=== PATIENT | female | born 1950 | race Caucasian/White ===

== ENCOUNTER 2017-01-20 18:06 | Inpatient (IN) | payer OTHER ==
[~2017-01-20] VITALS: Ht 170.2 cm; Wt 73.0 kg
[~2017-01-20 18:06] MED LIST: ROBITUSSIN W/CO10 ML PO
--- NOTE | 2017-01-20 18:15 | NUR ---
PT NOTICED TO HAVE DIFFICULTY BREATHING, O2 SAT AT [place] 83%, NC PLACED ON 2 LITERS FOR COMFORT. PT TACHACARDIC HR IN THE 115'S, PT PALE, ONLY ABLE TO STAND WITH THE ASSIST OF 2.
--- NOTE | 2017-01-20 18:18 | NUR ---
TRIAGE: PT BROUGHT TO ER BY SON WHO STATES SHE WAS DIAGNOSED WITH THE FLU ON SATURDAY AT [facility]. STATES SHE HAS BEEN GETTING WORSE AND WORSE. PT BROUGHT TO [place] FOR EKG FROM [facility]. R/A SATS 83%, PLACED ON NASAL CANULA O2. PT UNABLE TO SPEAK IN COMPLETE SENTENCES, +INCREASED WORK OF BREATHING NOTED.
--- NOTE | 2017-01-20 18:37 | NUR ---
PT TO ER ROOM 11. MD TO BEDSIDE IV EST. BLOOD WORK DRAWN AND SENT TO LAB PT ON 5L NC, SATS 91% AT THIS TIME TEMP 102.2
--- NOTE | 2017-01-20 18:53 | NUR ---
PT MEDICATED WITH TYLENOL AND VANCO PER ORDER. NORMAL SALINE FLUIDS PER ORDER
--- NOTE | 2017-01-20 18:58 | NUR ---
PT TO XRAY VIA STRETCHER AT THIS TIME
[2017-01-20 19:13] LABS: ABSOLUTE BASOPHIL COUNT 0 /CUMM (0.0-0.2); ABSOLUTE EOSINOPHIL COUNT 0 /CUMM (0.0-0.7); ABSOLUTE GRANULOCYTE CT 31.1 /CUMM (1.4-6.5); ABSOLUTE LYMPH COUNT 0.6 /CUMM (1.2-3.4); ABSOLUTE MONOCYTE COUNT 0.3 /CUMM (0.10-0.60); BASOPHIL % 0 % (0.0-2.0); EOSINOPHIL % 0 % (0-5); MEAN CORPUSCULAR HGB 28.2 PG (27.0-31.0); MEAN CORPUSCULAR HGB CONC 33.3 G/DL (33.0-37.0); MEAN CORPUSCULAR VOLUME 84.8 FL (81.0-99.0); MEAN PLATELET VOLUME 8.3 FL (7.4-10.4); PLATELET COUNT 376 /CUMM (130-400); RBC DISTRIBUTION WIDTH 13.2 % (11.5-14.5); RED BLOOD CELL CT 4.36 /CUMM (4.20-5.40)
[2017-01-20 19:17] LABS: GRANULOCYTE % 97.1 % (42.2-75.2)
--- NOTE | 2017-01-20 19:18 | NUR ---
CRITICAL TEST RESULTS [id number] JOSH MCFARLANE 66 F TESTS AND RESULTS: WBC 32.0 Results received and read back by: SATURNINO FALL Results received date and time: 01/20/171917 The following provider was notified of the results, and read the results back: MD ARREAGA Notified date and time: 01/20/17 at 1918
--- NOTE | 2017-01-20 19:26 | NUR ---
CRITICAL TEST RESULTS [id number] JOSH MCFARLANE 66 F TESTS AND RESULTS: LACTIC 2.7 Results received and read back by: SATURNINO FALL Results received date and time: 01/20/171925 The following provider was notified of the results, and read the results back: MD ARREAGA Notified date and time: 01/20/17 at 1926
--- NOTE | 2017-01-20 19:33 | NUR ---
PT C/O INCREASED SOB. INCREASED WOB NOTED. PT PUT ON NRB 100% O2 AND EVALUATED BY MD ARREAGA. RESP AT BEDSIDE GETTING ABG
--- NOTE | 2017-01-20 19:47 | RADIOLOGY REPORT ---
EXAMINATION: XR CHEST CLINICAL INFORMATION: Cough, hypoxia, pneumonia COMPARISON: 02/23/2014 TECHNIQUE: 2 views of the chest were obtained. FINDINGS: New from the prior study, there is left base consolidation and hazy left midlung and left base opacity, greatest posteriorly on the lateral view. The left costophrenic angle is not fully obscured. There may be a small left pleural effusion. Right lung and pleural spaces are clear. No pulmonary edema. Normal heart size. Regional skeleton intact. IMPRESSION: Left base consolidation consistent with pneumonia. Small left pleural effusion may be present as well. These findings are new since the prior study January 2014.
--- NOTE | 2017-01-20 20:19 | NUR ---
PT BACK FROM CT
[2017-01-20] MEDS ORDERED: BYSTOLIC20 M1 PO (20:21)
[2017-01-20] MEDS ORDERED: ONDANSETRON HCL4 MG (20:22)
[2017-01-20] MEDS ORDERED: SPIRIVA18 MCG INH (20:22)
[2017-01-20] MEDS ORDERED: BREO ELLIPTA 11 EACH INH (20:22)
[2017-01-20] MEDS ORDERED: VITAMIN C500 M6 PO (20:23)
[2017-01-20] MEDS ORDERED: MULTI-DAY VITA1 EACH PO (20:23)
--- NOTE | 2017-01-20 20:45 | ED INFLUENZA/URI COMPLAINT ---
History of Present Illness General Chief Complaint: Upper Respiratory Sx/Fever Stated Complaint: FLU, +NVD, FEVER, COUGH Source: patient Exam Limitations: no limitations Vital Signs & Intake/Output Vital Signs & Intake/Output Vital Signs Date Time Temp Pulse Resp B/P B/P Pulse O2 O2 Flow FiO2 Mean Ox Delivery Rate 01/21 0000 98.3 92 20 104/60 96 Venti Mask 50% 01/21 0000 96 Venti Mask 50% 01/20 2221 98.9 83 24 121/57 98 Non 60% ReBreather 01/20 2130 98.6 80 24 115/69 98 Non 60% ReBreather 01/20 2118 98.1 01/20 2025 98.1 89 24 107/53 98 Non 60% ReBreather 01/20 1854 91 Nasal 5.0L Cannula 01/20 1853 102.2 01/20 1819 102.2 114 26 108/71 83 Room Air ED Intake and Output 01/21 0000 01/20 1200 Intake Total 1000 Output Total Balance 1000 Intake, IV 1000 Patient 160 lb Weight Weight Reported by Patient Measurement Method Allergies Coded Allergies: adhesive tape (OPEN SORES - PAPER TAPE IS OKAY 01/20/17) Triage Note: TRIAGE: PT BROUGHT TO ER BY SON WHO STATES SHE WAS DIAGNOSED WITH THE FLU ON SATURDAY AT [facility]. STATES SHE HAS BEEN GETTING WORSE AND WORSE. PT BROUGHT TO [place] FOR EKG FROM [facility]. R/A SATS 83%, PLACED ON NASAL CANULA O2. PT UNABLE TO SPEAK IN COMPLETE SENTENCES, +INCREASED WORK OF BREATHING NOTED. Triage Nurses Notes Reviewed? yes HPI: Ms. Cabrera is a 66 yo f w/ PMH of palpitations on bystolic and pneumonia present into the emergency department for shortness of breath. States she went to her primary care doctor on Saturday where she was diagnosed with influenza. She did not have a nasal swab done at that point in time, the diagnosis was made clinically. Patient states that her shortness of breath continued to worsen over the past 5 days. She continues to have a productive cough of white/yellow sputum. She endorses subjective fevers and chills at home. Unknown how high the temperature has been. Son states her work of breathing has increased significantly over the past 24 hours and she has been able only to talk in one- word answers so he convinced her to come to the emergency department for evaluation. At triage, the patient was hypoxic to 80% on room air. She was noted to be tachycardic to 115 as well as febrile to 102. Patient is a remote smoker. smoked 1ppd for 30 years, but quit 20 years ago. (TEMI ARREAGA MD) Reconcile Medications Ascorbate Calcium (Vitamin C) 500 MG TABLET 1 TAB PO DAILY SUPPLEMENT ( Reported) Multivitamin (Multi-Day Vitamins) 1 EACH TABLET 1 TAB PO DAILY SUPPLEMENT ( Reported) Nebivolol HCl (Bystolic) 20 MG TABLET 1 TAB PO DAILY HEART (Reported) (JASON SINGH,SINCERE Amezcua) Past History Travel History Traveled to [place] past 21 day No Medical History Any Pertinent Medical History? 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 No (TEMI ARREAGA MD) Review of Systems Review of Systems Constitutional: Reports: chills, fever, malaise. Comments Review of systems: See HPI, All other systems negative. Constitutional: +fever, +chills, +fatigue. No malaise, no weight loss. HEENT: No visual changes no sore throat no congestion, no ear pain. Cardiovascular: No chest pain, no palpitation , no orthopnea. Skin: no rashes, no change in skin Respiratory: +cough, +inc work of breathing, no hemoptysis GI: No nausea no vomiting, no diarrhea, no bloating/constipation : No dysuria No hematuria, no frequency, no discharge Muscloskeletal: No joint pain, no joint swelling, no back pain, no neck pain Neurologic: No numbness no confusion, no headache Psych: No stress no depression Heme/endocrine: No bruising no bleeding Immunology: No lymphadenopathy (TEMI ARREAGA MD) Physical Exam Physical Exam General Appearance: well developed/nourished, alert, awake, anxious, severe distress Head: atraumatic, normal appearance Eyes: Bilateral: normal appearance, PERRL, EOMI. Ears, Nose, Throat: normal ENT inspection, hearing grossly normal, Dry mucous membranes Neck: normal inspection, supple, full range of motion Respiratory: chest non-tender, accessory muscle use, decreased breath sounds in the left lower lobe with high pitched bronchial noises. Positive crackles in left base Cardiovascular: regular rate/rhythm Gastrointestinal: normal bowel sounds, soft, non-tender Rectal: deferred Back: normal inspection, normal range of motion Extremities: normal inspection, normal capillary refill, normal range of motion Neurologic/Psych: no motor/sensory deficits, awake, alert, oriented x 3, normal mood/affect Skin: intact, normal color, warm/dry Core Measures Severe Sepsis Present: Yes BC x2: Yes Lactic Acid x2: Yes IV ABX Broad Spectrum: Yes NS/LR Started: Yes Septic Shock Present: No (GIBSON SINGH,TEMI) Progress Differential Diagnosis: influenza, pneumonia, pharyngitis, sinusitis, ARDS Plan of Care: Orders Procedure Date/time Status Nothing by Mouth 01/21 B Active US-LIMITED ABDOMEN 01/21 1000 Active PROTHROMBIN TIME 01/21 0500 Active PHOSPHORUS 01/21 0500 Active MAGNESIUM 01/21 0500 Active HEPATIC FUNCTION PANEL 01/21 0500 Active CBC WITHOUT DIFFERENTIAL 01/21 0500 Active BASIC ELECTROLYTES PLUS BUN&CR 01/21 0500 Active Wound Care/Dressing 01/20 2347 Active Weight 01/20 2347 Active VTE Mechanical Prophylaxis 01/20 2347 Active Vital Signs 01/20 2347 Active Turn and Reposition 01/20 2347 Active Drains/Tubes 01/20 2347 Active Teach/Educate 01/20 2347 Active Skin Integrity Protocol 01/20 2347 Active Skin/Pressure Ulcer Assess (Sk 01/20 2347 Active Precautions 01/20 2347 Complete Pain Treatment and Response 01/20 2347 Active Nutritional Intake, Monitor 01/20 2347 Active Isolation 01/20 2347 Complete CIWA 01/20 2347 Active Patient Care Conference 01/20 2347 Active Activity/Ambulation 01/20 2347 Active VRE ACTIVE SURVIELLANCE 01/20 2321 Active ACTIVE SURVEILLANCE NARES 01/20 2321 Active STREP PNEUMO URINARY ANTIGEN 01/20 2247 Active LEGIONELLA URINARY ANTIGEN 01/20 2247 Active Intake & Output 01/20 2230 Active EKG 01/20 2155 Active Code Status 01/20 2151 Active LACTIC ACID 01/20 2137 Complete Pathway - chart 01/20 2119 Active TRC EVALUATION (GEN) 01/20 2117 Active OXYGEN SETUP (GEN) 01/20 2117 Active Pathway - chart 01/20 2117 Active House Staff 01/20 2117 Active RAPID VIRAL INFLUENZA A 01/20 2117 Complete THROAT CULTURE W/QUICK STREP 01/20 2117 Complete LOWER RESPIRATORY CULTURE 01/20 2117 Active Patient Data 01/21 2108 Active Admit to inpatient 01/20 2018 Active ARTERIAL BLOOD GAS (GEN) 01/20 192 Complete HEPATITIS PANEL 01/20 1840 Active DIRECT BILIRUBIN 01/20 184 Active BLOOD CULTURE 01/20 183 Active LACTIC ACID 01/20 183 Active COMPREHENSIVE METABOLIC PANEL 01/20 183 Active CBC WITHOUT DIFFERENTIAL 01/20 1837 Complete EKG 01/20 180 Active Lab Add-on Test 01/20 UNK Active VTE Mechanical Prophylaxis 01/20 UNK Active Vital Signs 01/20 UNK Active MISTAKE 01/20 UNK Complete Isolation 01/20 UNK Complete Current Medications Sig/Nika Start time Last Medication Dose Stop Time Status Admin Multivitamins 1 TAB DAILY 01/21 1000 AC Therapeutic (Theragran-M Vitamins Tabs) Nebivolol 20 MG DAILY 01/21 1000 AC (Bystolic) Vancomycin HCl 1,000 MG Q12H 01/21 0700 AC Sodium Chloride 250 ML (Normal Saline 0.9%) Ceftazidime 1,000 MG IQ8 01/21 0000 CAN (Fortaz) Ceftazidime 1,000 MG Q12 01/20 2200 AC 01/20 (Fortaz) 2201 Guaifenesin 600 MG Q12 01/20 2200 AC 01/20 (Mucinex) 2221 Heparin Sodium 5,000 UNIT Q8 01/20 2200 AC 01/20 (Porcine) 2221 Ondansetron HCl 4 MG Q6P PRN 01/20 2200 AC (Zofran) Acetaminophen 650 MG Q6P PRN 01/20 2130 AC (Tylenol) Acetaminophen 1,000 MG Q6P PRN 01/20 2130 AC (Ofirmev) N/A 1 UNIT (No Carrier) Morphine Sulfate 2 MG Q6P PRN 01/20 2130 AC (Morphine) Sodium Chloride 1,000 ML Q10H 01/20 2130 AC (Normal Saline 0.9%) 01/22 0329 Laboratory Tests 01/20/172214: Lactic Acid 1.1 01/20/171934: pH 7.41, pCO2 34 L, pO2 255 H, HCO3 20 L, ABG O2 Sat (Measured) 98.0, P-50 ( Temp Corrected) Y, Carboxyhemoglobin 0.3 L, O2 Concentration % 100%, Temperature 102.2 H, O2 Delivery Method NRB, Phlebotomy Draw Site RIGHT RADIAL 01/20/171839: Anion Gap 17 H, Estimated GFR 45 L, BUN/Creatinine Ratio 25.0, Glucose 118 H, Lactic Acid 2.7 H, Calcium 8.3 L, Total Bilirubin 2.9 H, Direct Bilirubin 2.2 H, AST 89 H, ALT 83 H, Alkaline Phosphatase 202 H, Total Protein 5.7 L, Albumin 2.9 L, Globulin 2.8, Albumin/Globulin Ratio 1.0 L, CBC w Diff MAN DIFF ORDERED, RBC 4.36, MCV 84.8, MCH 28.2, RDW 13.2, MPV 8.3, Gran % 97.1 H, Lymphocytes % 2.0 L, Monocytes % 0.9 L, Eosinophils % 0, Basophils % 0 L, Absolute Granulocytes 31.1 H, Segmented Neutrophils 67, Band Neutrophils 25 H, Absolute Lymphocytes 0.6 L, Lymphocytes 2 L, Monocytes 1 L, Absolute Monocytes 0.3, Absolute Eosinophils 0, Absolute Basophils 0, Metamyelocytes 4 H , Myelocytes 1 H, Polychromasia 1+, Hypochromic-Microcytic 1+, Anisocytosis 1+, PUBS MCHC 33.3, Hepatitis A IgM Ab Pending, Hep Bs Antigen Pending, Hep B Core IgM Ab Conf Pending, Hepatitis C Antibody Pending Microbiology 01/20 2330 UPPER RESP: Surveillance Culture - RECD 01/20 2321 GI: Surveillance Culture - ORD 01/20 2247 URINE ROUT: Legionella Antigen - ORD 01/20 2247 URINE ROUT: Streptococcus pneumoniae Antigen (M - ORD 01/20 2145 LOWER RESP: Respiratory Culture - RES 01/20 2145 LOWER RESP: Gram Stain - RES 01/20 2145 NASOPHARYN: Influenza Virus A & B Rapid Smear - COMP 01/20 1843 NASOPHARYN: Influenza Virus A & B Rapid Smear - CAN Cancelled: DUPLICATE - SEE [id number] 01/20 1842 BLOOD: Blood Culture - RECD 01/21 1840 BLOOD: Blood Culture - RECD Ms. Cabrera is a 66-year-old female who is ill-appearing and toxic. She is only able to speak in one-word sentences. She is hypoxic to 80% on room air in triage. Recent has increased work of breathing and intercostal retractions bilaterally. Patient was placed on nasal cannula at 6 L and was still satting 89-90%. Concern for significant pneumonia versus ARDS versus pulmonary embolism. Patient was then upgraded from a nasal cannula to nonrebreather 15 L. Significant improvement in oxygenation level and symptomatic improvement as well. Patient's O2 oxygen level was 97% at that point in time. An ABG was obtained at that point in time. Clinically the patient has a left lower lobe pneumonia as she has high-pitched bronchial sounds in that area. The chest x-ray shows a left lower lobe pneumonia. Given the significant hypoxia, plan to obtain CTA PE to assess for possible underlying pulmonary embolism in addition to a pneumonia. CT is negative for a pulmonary embolism however it does better characterize the quality of the pneumonia which is quite extensive. The pneumonia covers the left lower lobe and part of the lingula. Since labs are notable for a leukocytosis of 32 with a significant left shift. The patient also has a lactic acidosis is elevated at 2.7. Patient also has some other electrolyte abnormalities. Patient was given 1 L of normal saline here in the emergency department. After blood cultures were obtained, patient was given broad-spectrum antibiotics with vancomycin and ceftaz. Discussed patient w/ Dr. Pa and he agrees to admission to ICU. (GIBSON SINGH,[facility]) Diagnostic Imaging: Viewed by Me: Radiology Read, CT Scan. Discussed w/RAD: Radiology Read, CT Scan. Radiology Impression: No pulmonary embolus seen. Extensive left lung consolidation with near complete involvement of the left lower lobe as well as involvement of the left upper lobe particularly in the lingula. There are air bronchograms but the central airways are patent. Small amount of left pleural fluid is present, likely loculated with loculations posteriorly at the left lung apex as well as laterally and anteriorly at the left lung base. Also seen is mediastinal lymphadenopathy most notable for enlarged AP window and subcarinal lymph nodes. Overall, the appearance is most consistent with extensive pneumonia , reactive lymphadenopathy, and a parapneumonic effusion. Alternatively, a malignancy could be considered, although no central obstructing mass is seen. Recommend pulmonary consultation to consider bronchoscopy and guide further management. CXR Impression: Left base consolidation consistent with pneumonia. Small left pleural effusion may be present as well. These findings are new since the prior study January 2014. Initial ED EKG: normal axis, normal intervals, normal p-waves, normal QRS complex, sinus tachycardia Prior EKG: changed (TEMI ARREAGA MD) Departure Departure Time of Disposition: 2057 Disposition: STILL A PATIENT Condition: Stable Clinical Impression Primary Impression: Pneumonia Qualifiers: Pneumonia type: due to unspecified organism Laterality: left Lung location: lower lobe of lung Qualified Code: J18.1 - Lobar pneumonia, unspecified organism Secondary Impressions: Fever Qualifiers: Fever type: unspecified Qualified Code: R50.9 - Fever, unspecified Hypoxia Referrals: MINESH ALVA MD (PCP/Family) Departure Forms: Customer Survey General Discharge Information Admission Note Spoke With: LEE PA MD Documentation of Exam: Documentation of any treatments & extenuating circumstances including Concerns Regarding Discharge (functional status, medication knowledge or non-compliance, living conditions, etc.) that warrant an admission rather than observation: Patient requires inpatient hospitalization as well as ICU level of care given the required amount of oxygen to maintain normal oxygenation. The patient is currently on 15 L via nonrebreather. The patient also has extensive pneumonia requiring IV antibiotics. She is critically ill at this point in time and requires ICU level of care. (TEMI ARREAGA MD) Resident Co-Sign Statement Statement: ED Attending supervision documentation- [] I saw and evaluated the patient. I have also reviewed all the pertinent lab results and diagnostic results. I agree with the findings and the plan of care as documented in the Resident's documentation. x] I have reviewed the ED Record and agree with the Resident's documentation. [] Additions or exceptions (if any) to the Resident's note and plan are summarized below: [] (JASON SINGH,SINCERE Amezcua) Critical Care Note Critical Care Note Critical Care Time: 30-74 min Comments: Total critical care time: 35 min (TEMI ARREAGA MD)
--- NOTE | 2017-01-20 20:51 | NUR ---
PT REPORTS SOB IMPROVING. IMPROVED WOB. PT 99% ON NRB 69% O2. PT A/O X4. RESP UNLABORED. SKIN WARM AND DRY. PT DENIES PAIN. NSR ON THE MONITOR. NO APPARENT DISTRESS. WILL CONTINUE TO MONITOR.
--- NOTE | 2017-01-20 20:52 | CT SCAN REPORT ---
EXAMINATION: CT ANGIOGRAM OF THE CHEST WITH AND WITHOUT CONTRAST (CT PULMONARY ANGIOGRAM FOR PE) CLINICAL INFORMATION: Shortness of breath. Hypoxia to 80 percent COMPARISON: Chest x-ray earlier today and 02/23/2014 TECHNIQUE: Prior to contrast administration, noncontrast localization images were obtained. Subsequently, multidetector volumetric imaging was performed from the thoracic inlet to below the diaphragms following the administration of 100 mL Optiray 320 intravenous contrast. No contrast reaction reported. Sagittal, coronal, and MIP oblique sagittal reformatted images were obtained on the CT workstation, uploaded to PACS, and reviewed. Total exam dose-length product 407 mGy-cm. FINDINGS: QUALITY OF STUDY/CONTRAST BOLUS: Satisfactory PULMONARY ARTERIES: No central or segmental pulmonary emboli. THORACIC AORTA: No aneurysm or dissection. LUNG: As seen on the chest radiograph, there is extensive left lung consolidation predominantly involving the left lower lobe but involving the left upper lobe as well, particularly in the lingula. Multiple air bronchograms are present. The major airways are intact. No debris is seen within the airways. There is moderate emphysema in the right lung and residual aerated left lung. PLEURA: Small amount of left pleural fluid is present, likely loculated with a loculated collection posteriorly at the lung apex as well as loculated fluid seen anteriorly and laterally in the left pleural space at the base. MEDIASTINUM: Multifocal mediastinal lymphadenopathy is seen with precarinal, prevascular, subcarinal, AP window, and bilateral hilar lymph nodes. The largest is a subcarinal lymph node measuring 1.1 x 2 cm. There is a 2.2 x 1.3 cm AP window lymph node. The pulmonary artery measures 3 cm suggesting pulmonary arterial hypertension. Normal heart size. Trace pericardial fluid. CHEST WALL/AXILLA: No axillary or internal mammary lymphadenopathy. OSSEOUS STRUCTURES: Multilevel degenerative changes of the thoracic spine with no acute or suspicious osseous abnormality. UPPER ABDOMEN: No adrenal mass. No reflux of contrast into the hepatic veins to suggest elevated right heart pressures. IMPRESSION: No pulmonary embolus seen. Extensive left lung consolidation with near complete involvement of the left lower lobe as well as involvement of the left upper lobe particularly in the lingula. There are air bronchograms but the central airways are patent. Small amount of left pleural fluid is present, likely loculated with loculations posteriorly at the left lung apex as well as laterally and anteriorly at the left lung base. Also seen is mediastinal lymphadenopathy most notable for enlarged AP window and subcarinal lymph nodes. Overall, the appearance is most consistent with extensive pneumonia, reactive lymphadenopathy, and a parapneumonic effusion. Alternatively, a malignancy could be considered, although no central obstructing mass is seen. Recommend pulmonary consultation to consider bronchoscopy and guide further management.
--- NOTE | 2017-01-20 21:08 | History & Physical ---
See Addendum General Information and HPI MD Statement: I have seen and personally examined JOSH MCFARLANE and documented this H&P. The patient is a 66 year old F who presented with a patient stated chief complaint of [shortness of breath]. Source of Information: patient, family Exam Limitations: no limitations History of Present Illness: 66-year-old female with a past medical history of possible COPD, supraventricular tachycardia, former smoker who presented to the ED with chief complaint of shortness of breath, generalized malaise and purulent productive cough going on for the past week and a half. According to the patient she was in her usual state of health up until about a week and half ago when she had flulike symptoms, productive cough bringing up brown marilyn colored phlegm and feeling of increased lethargy. Dorsal fever and chills that progressively got worse to point where the highest recorded temperature was 102F. 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 She saw her primary care physician at [facility] on Saturday of 01/14/2017 and was told that she has the flu and was advised symptomatic treatment as well as inhalers which include Breo. Her symptoms continued to worsen to the point where she was getting exertional a short of breath while getting out of bed. That's the reason why she decided to come to the ER today. Patient does endorse having episodes of nonbloody vomiting as well as nausea that started this past Saturday for which she took Zofran as well as diarrhea that was nonbloody, watery loose stools about 4-5 episodes on a daily basis not accompanied with abdominal pain. Her symptoms were relieved by taking Motrin Imodium. There is no recent history of antibiotic use. He also endorses some chest discomfort when taking a deep breath and points to with her left breast seen that it feels as if her chest and squeezing. There is no history of PND, no orthopnea, lower extremity swelling, palpitations , urinary frequency or burning micturition. Allergies/Medications Allergies: Coded Allergies: adhesive tape (OPEN SORES - PAPER TAPE IS OKAY 01/20/17) Home Med list Ascorbate Calcium (Vitamin C) 500 MG TABLET 1 TAB PO DAILY SUPPLEMENT ( Reported) Multivitamin (Multi-Day Vitamins) 1 EACH TABLET 1 TAB PO DAILY SUPPLEMENT ( Reported) Nebivolol HCl (Bystolic) 20 MG TABLET 1 TAB PO DAILY HEART (Reported) Compliance With Home Meds: GOOD Past History Travel History Traveled to [place] past 21 day No Medical History Neurological: NONE EENT: NONE Cardiovascular: TACHYCARDIA Respiratory: pneumonia Gastrointestinal: NONE Hepatic: NONE Renal: NONE Musculoskeletal: NONE Psychiatric: NONE Endocrine: NONE Blood Disorders: NONE Cancer(s): NONE [employer] AND [employer]ACH/Reproductive: NONE Pneumonia Vaccine: 02/22/07 Surgical History Surgical History: none Past Family/Social History Psychosocial History ETOH Use: denies use Illicit Drug Use: denies illicit drug use Review of Systems Review of Systems Constitutional: Reports: chills, fever, malaise, weakness. Denies: diaphoresis. EENTM: Denies: visual changes. Cardiovascular: Reports: chest pain. Denies: edema, orthopena, palpitations, peripheral edema. Respiratory: Reports: cough, hemoptysis, orthopnea, short of breath, sputum production. Denies: stridor, wheezing. GI: Reports: diarrhea, nausea, vomiting. Denies: abdominal pain, constipation, bloody stool. Genitourinary: Denies: discharge, frequency, pain, urgency. Musculoskeletal: Reports: see HPI. Neurological/Psychological: Reports: weakness. Denies: headache, numbness, tingling, tremors, unable to move lower ext, unable to move upper ext. Hematologic/Endocrine: Denies: bruising, bleeding. Exam & Diagnostic Data Last 24 Hrs of Vital Signs/I&O Vital Signs Date Time Temp Pulse Resp B/P B/P Pulse O2 O2 Flow FiO2 Mean Ox Delivery Rate 01/20 2221 98.9 83 24 121/57 98 Non 60% ReBreather 01/20 2130 98.6 80 24 115/69 98 Non 60% ReBreather 01/20 2118 98.1 01/20 2025 98.1 89 24 107/53 98 Non 60% ReBreather 01/20 1854 91 Nasal 5.0L Cannula 01/20 1853 102.2 01/20 1819 102.2 114 26 108/71 83 Room Air Physical Exam General Appearance Alert, Oriented X3, Cooperative, No Acute Distress Skin No Rashes Skin Temp/Moisture Exam: Warm/Dry Sepsis Skin Exam (color): Normal for Ethnicity HEENT Atraumatic, PERRLA, EOMI, dry mucous membranes, icteric Neck Supple, No JVD, No thryomegaly, +2 Carotid Pulse wo Bruit, No LAD Cardiovascular Regular Rate, Normal S1, Normal S2, No Murmurs, chest nontender to palpation Lungs decrased breath sound sin left lower lobe Abdomen Normal Bowel Sounds, Soft, No Tenderness, guerrero's negative, no rebound tenderness Neurological Normal Speech, Strength at 5/5 X4 Ext, Normal Tone, Sensation Intact, Cranial Nerves 3-12 NL, Reflexes 2+ Extremities No Clubbing, No Cyanosis, No Edema, Normal Pulses, No Tenderness/ Swelling Vascular Normal Pulses, Pulses Symmetrical Sepsis Peripheral Pulse Location: Dorsalis Pedis Sepsis Peripheral Pulse Exam: Normal Sepsis Cap Refill Exam: <2 Sec Last 24 Hrs of Labs/[place]: Laboratory Tests 01/20/172214: Lactic Acid 1.1 01/20/171934: pH 7.41, pCO2 34 L, pO2 255 H, HCO3 20 L, ABG O2 Sat (Measured) 98.0, P-50 ( Temp Corrected) Y, Carboxyhemoglobin 0.3 L, O2 Concentration % 100%, Temperature 102.2 H, O2 Delivery Method NRB, Phlebotomy Draw Site RIGHT RADIAL 01/20/17 1840: Anion Gap 17 H, Estimated GFR 45 L, BUN/Creatinine Ratio 25.0, Glucose 118 H, Lactic Acid 2.7 H, Calcium 8.3 L, Total Bilirubin 2.9 H, Direct Bilirubin 2.2 H, AST 89 H, ALT 83 H, Alkaline Phosphatase 202 H, Total Protein 5.7 L, Albumin 2.9 L, Globulin 2.8, Albumin/Globulin Ratio 1.0 L, CBC w Diff MAN DIFF ORDERED, RBC 4.36, MCV 84.8, MCH 28.2, RDW 13.2, MPV 8.3, Gran % 97.1 H, Lymphocytes % 2.0 L, Monocytes % 0.9 L, Eosinophils % 0, Basophils % 0 L, Absolute Granulocytes 31.1 H, Segmented Neutrophils 67, Band Neutrophils 25 H, Absolute Lymphocytes 0.6 L, Lymphocytes 2 L, Monocytes 1 L, Absolute Monocytes 0.3, Absolute Eosinophils 0, Absolute Basophils 0, Metamyelocytes 4 H , Myelocytes 1 H, Polychromasia 1+, Hypochromic-Microcytic 1+, Anisocytosis 1+, PUBS MCHC 33.3, Hepatitis A IgM Ab Pending, Hep Bs Antigen Pending, Hep B Core IgM Ab Conf Pending, Hepatitis C Antibody Pending Microbiology 01/20 2321 UPPER RESP: Surveillance Culture - ORD 01/20 2321 GI: Surveillance Culture - ORD 01/20 2247 URINE ROUT: Legionella Antigen - ORD 01/20 2247 URINE ROUT: Streptococcus pneumoniae Antigen (M - ORD 01/20 2145 LOWER RESP: Respiratory Culture - RES 01/20 2145 LOWER RESP: Gram Stain - RES 01/20 2145 NASOPHARYN: Influenza Virus A & B Rapid Smear - COMP 01/20 1843 NASOPHARYN: Influenza Virus A & B Rapid Smear - CAN Cancelled: DUPLICATE - SEE [id number] 01/20 1842 BLOOD: Blood Culture - RECD 01/21 1840 BLOOD: Blood Culture - RECD Diagnostic Data EKG Results sinus tachycardia with no ST T changes QTC of 4:30. CXR Results Left base consolidation consistent with pneumonia. Small left pleural effusion may be present as well. Other Results CTA to rule out pulmonary embolism revealed no evidence of PE. Extensive left lung consolidation with near complete involvement of the left lower lobe as well as involvement of the left upper lobe particularly in the lingula. There are air bronchograms but the central airways are patent. Small amount of left pleural fluid is present, likely loculated with loculations posteriorly at the left lung apex as well as laterally and anteriorly at the left lung base. Also seen is mediastinal lymphadenopathy most notable for enlarged AP window and subcarinal lymph nodes. Overall, the appearance is most consistent with extensive pneumonia , reactive lymphadenopathy, and a parapneumonic effusion Assessment/Plan Assessment: 66-year-old female with a past medical history of possible COPD, supraventricular tachycardia, former smoker who presented to the ED with chief complaint of shortness of breath, generalized malaise and purulent productive cough going on for the past week and a half. Vitals at the time of admission blood pressure 108/71, respiratory rate of 26, tachycardic to 114, MAXIMUM TEMPERATURE 102.2 saturating 90% on 60% nonrebreather. On physical exam she is alert and oriented 3 and in no acute distress with nonrebreather facemask sitting comfortably in bed. HEENT revealed PERRLA, right arm mucous membranes. She is icteric on exam. Cardiovascular exam pertinent for normal S1, S2, no murmurs or gallops appreciated with the JVD of approximately 5 cm. There is no cervical lymphadenopathy. Chest auscultation revealed decreased breath sounds on the left lower lobe. No wheezing appreciated. Abdominal exam was benign with abdomen soft, nontender nondistended with normal bowel sounds in all 4 quadrants and Guerrero's negative. Examination of the lower extremities did not reveal any edema. Neuro exam was grossly unremarkable. Labs pertinent for [place]ocytosis [place] [address], H&H of 12.3/37.5 and a platelet count of 376,000 with 97.6% granulocytes and 25 bands. Serum chemistries revealed hyponatremia with a sodium 126, potassium of 4.4, chloride of 87, bicarbonate of 22, elevated anion gap of 17, BUN 30 and creatinine 1.2 lactic acid elevated to 2.7. LFTs consistent with conjugated hyperbilirubinemia with total bili 2.9, direct bili 2.2, AST/83 9/33 with an alkaline phosphatase of 22. ABGs revealed a pH of 7.41, PCO2 34, PO2 of 255 and a bicarbonate of 20. EKG revealed sinus tachycardia with no ST T changes QTC of 4:30. Chest x-ray revealed Left base consolidation consistent with pneumonia. Small left pleural effusion may be present as well. CTA to rule out pulmonary embolism revealed no evidence of PE. Extensive left lung consolidation with near complete involvement of the left lower lobe as well as involvement of the left upper lobe particularly in the lingula. There are air bronchograms but the central airways are patent. Small amount of left pleural fluid is present, likely loculated with loculations posteriorly at the left lung apex as well as laterally and anteriorly at the left lung base. Also seen is mediastinal lymphadenopathy most notable for enlarged AP window and subcarinal lymph nodes. Overall, the appearance is most consistent with extensive pneumonia , reactive lymphadenopathy, and a parapneumonic effusion Assessment and plan Admit patient to ICU. #Acute hypoxemic respiratory failure Most likely secondary to lobar pneumonia We'll treat for healthcare associated pneumonia with vancomycin and ceftazidime renally adjusted Continue to maintain on nonrebreather mask and titrate oxygen to maintain saturations greater than 92%. Follow-up will respiratory cultures, blood cultures 2, of note her flu swab was negative. Follow-up urinary strep pneumo and Legionella antigen Critical care consult in a.m. #Sepsis secondary to lobar pneumonia Continue on vancomycin and ceftazidime for healthcare associated pneumonia for now Follow-up will respiratory cultures, blood cultures 2 Patient is agreeable for central line and IV pressors if need be. For now, hydration with NS at 100mls/ hour. Goal map of greater than 65 mmHg. #History of supraventricular tachycardia Continue on Bystolic 20 mg daily #Hyponatremia Most likely hypovolemic. Follow-up BEP in a.m. Continue hydration with IV fluids for now #AK I Most likely secondary to dehydration in the setting of decreased by mouth intake for the past few days. Hydrate with IV fluids and follow-up BEP in a.m. Avoid nephrotoxic agents for now. Consider renal ultrasound to rule out for obstructive pathology if creatinine does not improve. #Elevated anion gap metabolic acidosis Most likely secondary to lactic acidosis The setting of hypoxemia follow-up second setting of lactic acid at 10 PM. #Transaminitis in the setting of elevated direct bilirubin consistent with obstructive pathology Follow-up LFTs in a.m. F/U ultrasound abdomen in AM to r/o obstructive CBD Follow-up hepatitis panel - DVT prophylaxis Heparin 5000 international units 3 times a day subcutaneous - Diet Heart Healthy. NPO after midnight for ultrasound in a.m. - CODE STATUS Full code As Ranked By This Provider Problem List: 1. Pneumonia Qualifiers Pneumonia type: due to unspecified organism Laterality: left Lung location: lower lobe of lung Qualified Code: J18.1 - Lobar pneumonia, unspecified organism 2. Hypoxia Core Measures/Miscellaneous Acute Coronary Syndrome ACS Diagnosis: No Cerebrovascular Accident CVA/TIA Diagnosis: No Congestive Heart Failure CHF Diagnosis: No Venous Thromboembolism VTE Risk Factors: Age > 40 No [facility] VTE prophylaxis d/t: No contraindications No VTE Pharm Prophylaxis d/t: No contraindications VTE Diagnosis: No VTE Type: NONE VTE Confirmed by (Test): NONE Severe Sepsis Severe Sepsis Present: Yes BC x2: Yes Lactic Acid x2: Yes IV ABX Broad Spectrum: Yes NS/LR Started: Yes Septic Shock Septic Shock Present: No Miscellaneous Documentation Attending Case Discussed With: CATHY SINGH,LEE Cook Primary Care Physician: MINESH ALVA MD Patient sees these Specialists None Level of Patient Care: Critical Care (CRI) Consults Needed: Consulting Specialty: Critical Care Resident Review Statement Resident Statement: admitted by resident
--- NOTE | 2017-01-20 21:37 | NUR ---
BED 112-1
--- NOTE | 2017-01-20 22:22 | NUR ---
PT APPEARS TO BE RESTING COMFORTBALY. RESP UNLABORED. ATTEMPTED TO PUT PT ON 4 L NC, PT O2 SAT DROPPED TO 89%. PT PUT BACK ON NRB 60% O2.
[2017-01-21] VITALS: BP 104/60
--- NOTE | 2017-01-21 01:12 | NUR ---
RECEIVED FROM ER A/O X 3 VICENTE TO COMMAND. HAS CONGESTED COUGH DOES NOT EXPECTORATE BBS WITH RHONCHI, ABD SOFT BS +, DENIES PAIN.MONITOR SR.ORIENTED TO UNIT AND ACTIVITY RESTRICTIONS GIVEN PNEUMONIA PAMPHLET EDUCATION. SKIN INTACT DEMONSTRATES USE OF NURSE CALL LIGHT.
--- NOTE | 2017-01-21 02:33 | NUR ---
PT OOB TO BEDSIDE COMMODE, NO SYNCOPEE OR VERTIGO, DOES ADMIT TO DYSPNEA NOT USING O2 WHILE ON COMMODE O2 SAT TO 80% WHEN RETURNED TO BED WITH VM 02 SAT BACK UP TO 96% QUICKLY. RESP ISOLATION D/C BY DR GR EXPLAINED TO PT.
[2017-01-21 05:01] LABS: ABSOLUTE BASOPHIL COUNT 0 /CUMM (0.0-0.2); ABSOLUTE EOSINOPHIL COUNT 0 /CUMM (0.0-0.7); BASOPHIL % 0 % (0.0-2.0); EOSINOPHIL % 0 % (0-5)
[2017-01-21 05:07] LABS: ABSOLUTE GRANULOCYTE CT 26.2 /CUMM (1.4-6.5); ABSOLUTE LYMPH COUNT 0.4 /CUMM (1.2-3.4); ABSOLUTE MONOCYTE COUNT 0.1 /CUMM (0.10-0.60); GRANULOCYTE % 98.3 % (42.2-75.2); MEAN CORPUSCULAR HGB 28.5 PG (27.0-31.0); MEAN CORPUSCULAR HGB CONC 33.3 G/DL (33.0-37.0); MEAN CORPUSCULAR VOLUME 85.6 FL (81.0-99.0); MEAN PLATELET VOLUME 7.6 FL (7.4-10.4); PLATELET COUNT 304 /CUMM (130-400); RBC DISTRIBUTION WIDTH 13.3 % (11.5-14.5); RED BLOOD CELL CT 3.57 /CUMM (4.20-5.40); WHITE BLOOD CELL COUNT 26.7 /CUMM (4.8-10.8)
[2017-01-21 05:08] LABS: PT 16.4 SEC (9.4-12.5)
[2017-01-21 05:12] LABS: HEMATOCRIT 30.5 % (37-47)
[2017-01-21 08:00] VITALS: BP 130/68
--- NOTE | 2017-01-21 08:13 | Cons- CRCU ---
[facility] 01/21/17 0813: General Information and HPI Consulting Request Date of Consult: 01/21/17 Requested By: Dr Oviedo Source of Information: patient, family, old records Exam Limitations: no limitations History of Present Illness: Ms Cabrera is a 66-year-old female with past medical history of questionable COPD and supraventricular tachycardia who presented to the emergency department on after experiencing a worsening cough, shortness of breath and generalized malaise and weakness. The patient states that her symptoms began on Saturday01/14/2017 when she began to feel like she had symptoms of a URI. Patient reports that she developed a worsening cough. Productive in nature. She describes it as rust colored sputum. Approximately 1 tablespoon per day. She visited a walk-in clinic where she was prescribed medications for her cough (unsure of what she was prescribed), an anti diarrheal agent and an anti asthmatic agent (Breo - Fluticasone furoate and vilanterol). In addition to the symptoms of the URI the patient also reports that she had diarrhea. Diarrhea was in the range of between 6-10 bowel movements per day. She denies any hematochezia. She also denies any abdominal pain or abdominal discomfort. Patient states that her diarrhea resolved following the administration of the antidiarrheal agent. Prior to coming to the emergency department, the patient also endorses a fever which she checked at home. She states that her temperature was up to 103F. 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 She states that she does not feel like she's been exposed to any ill individuals at her place of work. She denies being exposed to any ill contacts at home. Patient lives at home with her son. Patient's primary care physician is Dr. Oviedo. Allergies/Medications Allergies: Coded Allergies: adhesive tape (OPEN SORES - PAPER TAPE IS OKAY 01/20/17) Home Med List: Ascorbate Calcium (Vitamin C) 500 MG TABLET 1 TAB PO DAILY SUPPLEMENT ( Reported) Multivitamin (Multi-Day Vitamins) 1 EACH TABLET 1 TAB PO DAILY SUPPLEMENT ( Reported) Nebivolol HCl (Bystolic) 20 MG TABLET 1 TAB PO DAILY HEART (Reported) Current Medications: Current Medications Sig/Nika Start time Last Medication Dose Route Stop Time Status Admin Acetaminophen 650 MG Q6P PRN 01/20 2130 AC PO Acetaminophen 1,000 MG Q6P PRN 01/20 2130 AC N/A 1 UNIT IV Acetaminophen 0 .STK-MED ONE 01/20 184 DC PO Acetaminophen 650 MG ONCE ONE 01/20 1845 DC 01/20 PO 01/20 184 1853 Acetylcysteine 4 ML BID 01/21 1111 AC INH Albuterol Sulfate 3 ML TID 01/21 1000 AC 01/21 INH 0903 Ceftazidime 1,000 MG IQ8 01/21 0000 CAN IV Ceftazidime 1,000 MG Q12 01/20 2200 AC 01/21 IV 1002 Ceftazidime 0 .STK-MED ONE 01/21 2116 DC .ROUTE Guaifenesin 600 MG Q12 01/20 2200 AC 01/21 PO 1002 Heparin Sodium 0 .STK-MED ONE 01/20 2207 DC (Porcine) .ROUTE Heparin Sodium 5,000 UNIT Q8 01/20 2200 AC 01/21 (Porcine) SC 1458 Morphine Sulfate 2 MG Q6P PRN 01/20 2130 AC IV Multivitamins 1 TAB DAILY 01/21 1000 AC 01/21 Therapeutic PO 1002 Nebivolol 20 MG DAILY 01/21 1000 AC 01/21 PO 1115 Ondansetron HCl 4 MG ONCE ONE 01/21 1315 DC 01/21 IV 01/21 1316 1315 Ondansetron HCl 4 MG Q6P PRN 01/200 AC IV Sodium Chloride 1,000 ML Q10H 01/21 1715 AC IV 01/22 2314 Sodium Chloride 1,000 ML Q10H 01/20 2130 DC 01/21 IV 01/22 0329 0622 Sodium Chloride 1,000 ML BOLUS ONE 01/20 2100 DC 01/20 IV 01/20 215 2109 Sodium Chloride 1,000 ML BOLUS ONE 01/20 1845 DC 01/20 IV 01/20 194 1844 Vancomycin HCl 1,000 MG Q12H 01/21 0700 AC 01/21 Sodium Chloride 250 ML IV 0622 Vancomycin HCl 0 .STK-MED ONE 01/20 184 DC .ROUTE Vancomycin HCl 1,000 MG ONCE ONE 01/20 1845 DC 01/20 Sodium Chloride 250 ML IV 01/20 194 1853 Review of Systems Review of Systems Constitutional: Reports: see HPI, chills, fever, malaise, weakness. Denies: diaphoresis. EENTM: Denies: blurred vision, double vision, visual changes. Cardiovascular: Denies: chest pain, orthopena. Respiratory: Reports: cough, short of breath, sputum production. Denies: hemoptysis, orthopnea. GI: Reports: diarrhea, nausea, vomiting. Denies: see HPI, abdominal pain, bloating, constipation. Genitourinary: Denies: discharge, dysuria, frequency, hematuria, hesitation. Musculoskeletal: Denies: back pain, gout, joint pain, joint swelling. 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 Home Who Do You Live With? child Services at Home: NONE Primary Language: Maldivian Smoking Status: Former Smoker ETOH Use: denies use Illicit Drug Use: denies illicit drug use Functional Ability ADLs Independent: dressing, eating, toileting, bathing. Ambulation: independent IADLs Independent: shopping, housework, finances, food prep, telephone, transportation , medication admin. Employment History Employment: Employed ([employer] ) Exam & Diagnostic Data Last 24 Hrs of Vital Signs/I&O Vital Signs Date Time Temp Pulse Resp B/P B/P Pulse O2 O2 Flow FiO2 Mean Ox Delivery Rate 01/21 1600 94 Nasal 4.0L Cannula 01/21 1600 97.6 86 20 150/100 96 Nasal 4.0L Cannula 01/21 1200 92 Nasal 4.0L Cannula 01/21 1015 Nasal 4.0L Cannula 01/21 1014 95 Nasal 4.0L Cannula 01/21 0800 96 Nasal 4.0L Cannula 01/21 0800 98.4 86 30 130/68 97 Venti Mask 50% 01/21 0400 99 Venti Mask 50% 01/21 0000 98.3 92 20 104/60 96 Venti Mask 50% 01/21 0000 96 Venti Mask 50% 01/20 2221 98.9 83 24 121/57 98 Non 60% ReBreather 01/200 98.6 80 24 115/69 98 Non 60% ReBreather 01/208 98.1 01/20 2025 98.1 89 24 107/53 98 Non 60% ReBreather 01/20 1854 91 Nasal 5.0L Cannula 01/20 1853 102.2 01/20 1819 102.2 114 26 108/71 83 Room Air Intake & Output 01/21 1600 01/21 0800 01/21 0000 Intake Total 1240 3200 1000 Output Total 250 800 Balance 990 2400 1000 Intake, IV 840 3200 1000 Intake, Oral 400 Number 0 Bowel Movements Output, Urine 250 800 Patient 72.575 kg Weight Weight Reported by Patient Measurement Method Physical Exam General Appearance: well developed/nourished, no apparent distress, alert, awake Head: atraumatic, normal appearance Eyes: Bilateral: normal appearance, PERRL. Ears, Nose, Throat: normal pharynx Neck: normal inspection, supple Respiratory: normal breath sounds, chest non-tender Cardiovascular: regular rate/rhythm Gastrointestinal: normal bowel sounds, soft, non-tender Back: normal inspection Extremities: normal inspection, normal capillary refill Neurologic/Psych: no motor/sensory deficits, awake, alert, oriented x 3 Cranial Nerves: normal hearing, normal speech, PERRL Last 48 Hrs of Labs/Chema: Laboratory Tests 01/21/17 0420: Anion Gap 11, Estimated GFR 56 L, BUN/Creatinine Ratio 29.0 H, Phosphorus 4.1, Magnesium 2.3, Total Bilirubin 2.0 H, Direct Bilirubin 1.7 H, AST 80 H, ALT 73 H, Alkaline Phosphatase 149 H, Total Protein 4.6 L, Albumin 2.2 L, PT 16.4 H, INR 1.57 H, CBC w Diff MAN DIFF ORDERED, RBC 3.57 L, MCV 85.6, MCH 28.5, RDW 13.3, MPV 7.6, Gran % 98.3 H, Lymphocytes % 1.5 L, Monocytes % 0.2 L, Eosinophils % 0, Basophils % 0 L, Absolute Granulocytes 26.2 H, Segmented Neutrophils 74, Band Neutrophils 22 H, Absolute Lymphocytes 0.4 L, Absolute Monocytes 0.1 L, Absolute Eosinophils 0, Absolute Basophils 0, Metamyelocytes 4 H, Platelet Estimate ADEQUATE, Polychromasia 1+, Microcytic Cells 1+, PUBS MCHC 33.3 01/20/17 2215: Lactic Acid 1.1 01/20/171934: pH 7.41, pCO2 34 L, pO2 255 H, HCO3 20 L, ABG O2 Sat (Measured) 98.0, P-50 ( Temp Corrected) Y, Carboxyhemoglobin 0.3 L, O2 Concentration % 100%, Temperature 102.2 H, O2 Delivery Method NRB, Phlebotomy Draw Site RIGHT RADIAL 01/20/171839: Anion Gap 17 H, Estimated GFR 45 L, BUN/Creatinine Ratio 25.0, Glucose 118 H, Lactic Acid 2.7 H, Calcium 8.3 L, Total Bilirubin 2.9 H, Direct Bilirubin 2.2 H, AST 89 H, ALT 83 H, Alkaline Phosphatase 202 H, Total Protein 5.7 L, Albumin 2.9 L, Globulin 2.8, Albumin/Globulin Ratio 1.0 L, CBC w Diff MAN DIFF ORDERED, RBC 4.36, MCV 84.8, MCH 28.2, RDW 13.2, MPV 8.3, Gran % 97.1 H, Lymphocytes % 2.0 L, Monocytes % 0.9 L, Eosinophils % 0, Basophils % 0 L, Absolute Granulocytes 31.1 H, Segmented Neutrophils 67, Band Neutrophils 25 H, Absolute Lymphocytes 0.6 L, Lymphocytes 2 L, Monocytes 1 L, Absolute Monocytes 0.3, Absolute Eosinophils 0, Absolute Basophils 0, Metamyelocytes 4 H , Myelocytes 1 H, Polychromasia 1+, Hypochromic-Microcytic 1+, Anisocytosis 1+, PUBS MCHC 33.3, Hepatitis A IgM Ab NONREACTIVE, Hep Bs Antigen NONREACTIVE, Hep B Core IgM Ab Conf NONREACTIVE, Hepatitis C Antibody NONREACTIVE Microbiology 01/22 220 URINE ROUT: Legionella Antigen - COMP 01/22 220 URINE ROUT: Streptococcus pneumoniae Antigen (M - COMP 01/20 2145 NASOPHARYN: Influenza Virus A & B Rapid Smear - COMP Diagnostic Data CXR Results SERVICE DATE: 01/20/17 EXAM TYPE: RAD - XRY-CHEST XRAY, PA AND LATERAL EXAMINATION: XR CHEST IMPRESSION: Left base consolidation consistent with pneumonia. Small left pleural effusion may be present as well. These findings are new since the prior study January 2014. DICTATED BY: LILIBETH KLINE MD Assessment/Plan Impression/Plan: Ms Cabrera is a 66-year-old female with past medical history of questionable COPD questionable and supraventricular tachycardia who presented to the emergency department on 01/20/2017 after experiencing a worsening cough, shortness of breath and generalized malaise and weakness Her symptoms are right likely related to healthcare associated pneumonia especially in the setting of being exposed to contacts at her extended care facility. Respiratory Sepsis due to Acute hypoxic respiratory failure secondary to lobar pneumonia. Patient did meet sepsis criteria at the time of admission with an elevated temperature (102.2), heart rate (114) and respiratory rate (26) Vancomycin and ceftazidime have been started. We will continue to monitor cultures. May consider discontinuing vancomycin should the patient improve over the next 24 hours. Initial lower respiratory sputum culture shows light mixed alina after day 1. Continue TRC nebs, chest PT. Incentive spirometer. Aggressive flutter device. Head of bed down. Patient did have a negative flu swab. Cardiology Patient's history of SVT is currently well controlled. She is currently normal sinus rhythm below 100 bpm. If patient develops any rate or rhythm disturbances consider cardiology consult. May want to consider echocardiogram. Continue home medications: Nebivolol. Metabolic Patient was hyponatremic on admission. Likely due to decreased by mouth intake. Will hydrate the patient with normal saline and repeat labs in a.m. If labs are within normal physiological limits we will discontinue the fluids as patient is tolerating by mouth intake well. Abdomen. Abdominal ultrasound done at the time of admission showed no intra-abdominal pathology. No evidence of any cholelithiasis. AST/ALT elevated, hepatitis panel, non reactive. Serial abdominal exams. Guaiac all stools. If patient continues to complain of diarrhea consider C. difficile. Advanced diet as tolerated. Renal Patient's BUN/creatinine were elevated at the time of admission. Likely due to a CLAUDETTE secondary to hypoperfusion. We'll continue the patient on IV fluids and monitor a BEP in a.m. Diet. Regular diet. DVT prophylaxis Heparin subcutaneous. Code full code Consult Acknowledgment - Thank you for your consult request. RYLIE SINGH,Manfred PEREZ 01/21/17 1024: Assessment/Plan Other Findings/Comments: I have personally seen and examined the patient, and agree with the residents assessment and plan as detailed above. We will continue antibiotic therapy, follow up cultures and monitor blood work. The patient will continue with total respiratory care, nebs, chest PT to the left lower lobe, Mucinex and Mucomyst. We will continue all supportive care. Consult Acknowledgment - Thank you for your consult request.
--- NOTE | 2017-01-21 11:31 | ULTRASOUND REPORT ---
EXAMINATION: US ABDOMEN LIMITED CLINICAL INFORMATION: Hyperbilirubinemia. Evaluate for cholelithiasis and obstructed common duct.. COMPARISON: None TECHNIQUE: Real-time imaging of the right upper quadrant abdominal viscera. FINDINGS: PANCREAS: Normal. LIVER: Normal. The liver demonstrates normal size, contour and echogenicity. No focal lesion or intrahepatic biliary duct dilatation. GALLBLADDER: Normal. The gallbladder is physiologically distended without evidence of stones, sludge, polyps, wall thickening or pericholecystic fluid. COMMON BILE DUCT: Normal in caliber measuring 0.4 cm in diameter. RIGHT KIDNEY: Normal. No hydronephrosis. No renal calculi or focal parenchymal lesions. The kidney measures 11.3 cm in maximum dimension. FREE FLUID: None. IMPRESSION: 1. Liver is sonographically normal. 2. Gallbladder is normal; no evidence of cholelithiasis or biliary tract obstruction.
[2017-01-21 16:00] VITALS: BP 110/60; BP 150/100
--- NOTE | 2017-01-21 20:27 | Admission Certification ---
Admission Certification Certification Statement - As attending physician, I certify that at the time of - admission, based on clinical presentation, severity of - symptoms, need for further diagnostic testing and - therapeutic interventions, and risk of adverse outcomes - without in-hospital treatment, in my clinical assessment, - this patient requires an acute hospital stay for a minimum - of two nights or longer. I have also considered psychsocial - factors such as support system, advanced age, financial - issues, cognitive issues, and failed out-patient treatments, - past re-admission history, safety of patient, and lack of - compliance as applicable. Specific rationale supporting this admission is: Shortness of breath, hypoxemia and severe pneumonia
--- NOTE | 2017-01-21 20:31 | PN- Att Addend ---
Attending Addendum Attending Brief Note 66-year-old white female has been sick for several days started with flulike symptoms with fever chills but diarrhea or came to my office was treated symptomatically. Was thought to be the flu endocrine no nasal swab was performed patient continued to feel worse of breath progressively worse to the point that she had to come to the ER a cardiac hypoxemic and pneumonia on x-ray. All cultures were obtained was admitted for evaluation and treatment will obtain a pulmonary consult and possibly an infectious disease consult is necessary. Current Medications Sig/Nika Start time Last Medication Dose Route Stop Time Status Admin Acetaminophen 650 MG Q6P PRN 01/20 2130 AC PO Acetaminophen 1,000 MG Q6P PRN 01/20 2130 AC N/A 1 UNIT IV Acetylcysteine 4 ML BID 01/21 1111 AC INH Albuterol Sulfate 3 ML TID 01/21 1000 AC 01/21 INH 0903 Ceftazidime 1,000 MG IQ8 01/21 0000 CAN IV Ceftazidime 1,000 MG Q12 01/20 2200 AC 01/21 IV 1002 Ceftazidime 0 .STK-MED ONE 01/20 211 DC .ROUTE Guaifenesin 600 MG Q12 01/20 2200 AC 01/21 PO 1002 Heparin Sodium 0 .STK-MED ONE 01/20 2207 DC (Porcine) .ROUTE Heparin Sodium 5,000 UNIT Q8 01/20 2200 AC 01/21 (Porcine) SC 1458 Morphine Sulfate 2 MG Q6P PRN 01/20 2130 AC IV Multivitamins 1 TAB DAILY 01/21 1000 AC 01/21 Therapeutic PO 1002 Nebivolol 20 MG DAILY 01/21 1000 AC 01/21 PO 1115 Ondansetron HCl 4 MG ONCE ONE 01/21 1315 DC 01/21 IV 01/21 1316 1315 Ondansetron HCl 4 MG Q6P PRN 01/20 2200 AC IV Sodium Chloride 1,000 ML Q10H 01/21 1715 AC 01/21 IV 01/22 2314 1715 Sodium Chloride 1,000 ML Q10H 01/20 2130 DC 01/21 IV 01/22 0329 0622 Sodium Chloride 1,000 ML BOLUS ONE 01/20 2100 DC 01/20 IV 01/20 2159 2109 Vancomycin HCl 1,000 MG Q12H 01/21 0700 AC 01/21 Sodium Chloride 250 ML IV 1824 Laboratory Tests 01/21 01/20 0420 2215 Chemistry Sodium (137 - 145 mmol/L) 130 L Potassium (3.5 - 5.1 mmol/L) 4.0 Chloride (98 - 107 mmol/L) 97 L Carbon Dioxide (22 - 30 mmol/L) 22 Anion Gap (5 - 16) 11 BUN (7 - 17 mg/dL) 29 H Creatinine (0.5 - 1.0 mg/dL) 1.0 Estimated GFR (>60 ml/min) 56 L BUN/Creatinine Ratio (7 - 25 %) 29.0 H Lactic Acid (0.7 - 2.1 mmol/L) 1.1 Phosphorus (2.5 - 4.5 mg/dL) 4.1 Magnesium (1.6 - 2.3 mg/dL) 2.3 Total Bilirubin (0.2 - 1.3 mg/dL) 2.0 H Direct Bilirubin (< 0.4 mg/dL) 1.7 H AST (14 - 36 U/L) 80 H ALT (9 - 52 U/L) 73 H Alkaline Phosphatase (<127 U/L) 149 H Total Protein (6.3 - 8.2 g/dL) 4.6 L Albumin (3.5 - 5.0 g/dL) 2.2 L Coagulation PT (9.4 - 12.5 SEC) 16.4 H INR (0.90 - 1.19) 1.57 H Hematology CBC w Diff MAN DIFF ORDERED WBC (4.8 - 10.8 /CUMM) 26.7 H RBC (4.20 - 5.40 /CUMM) 3.57 L Hgb (12.0 - 16.0 G/DL) 10.2 L Hct (37 - 47 %) 30.5 L MCV (81.0 - 99.0 FL) 85.6 MCH (27.0 - 31.0 PG) 28.5 RDW (11.5 - 14.5 %) 13.3 Plt Count (130 - 400 /CUMM) 304 MPV (7.4 - 10.4 FL) 7.6 Gran % (42.2 - 75.2 %) 98.3 H Lymphocytes % (20.5 - 51.1 %) 1.5 L Monocytes % (1.7 - 9.3 %) 0.2 L Eosinophils % (0 - 5 %) 0 Basophils % (0.0 - 2.0 %) 0 L Absolute Granulocytes (1.4 - 6.5 /CUMM) 26.2 H Segmented Neutrophils (42.2 - 75.2 %) 74 Band Neutrophils (0.0 - 5.0 %) 22 H Absolute Lymphocytes (1.2 - 3.4 /CUMM) 0.4 L Absolute Monocytes (0.10 - 0.60 /CUMM) 0.1 L Absolute Eosinophils (0.0 - 0.7 /CUMM) 0 Absolute Basophils (0.0 - 0.2 /CUMM) 0 Metamyelocytes (0.0 - 1.0 %) 4 H Platelet Estimate (ADEQUATE) ADEQUATE Polychromasia 1+ Microcytic Cells 1+ PUBS MCHC (33.0 - 37.0 G/DL) 33.[address] scan of the chest was noted.
[2017-01-21 23:46] VITALS: BP 128/68
--- NOTE | 2017-01-22 04:41 | NUR ---
PT REMOVED O2 AND ATTEMPTED TO GET OOB INDEPENDENTLY. BEDALARM IN PLACE. PT PULSE OX FOUND TO BE 78%. PT REPOSITIONED AND SAT UP IN BED. PT TACHYPENIC RR 44 AT THAT TIME. PT LUNGS DIMINISHED WITH WHEEZES. PT C/O TIGHTNESS WHILE BREATHING. RESPIRATORY CALLED AND AT BEDSIDE. PT RECIEVING NEB TREATMENT
[2017-01-22 05:05] LABS: ABSOLUTE BASOPHIL COUNT 0 /CUMM (0.0-0.2); ABSOLUTE EOSINOPHIL COUNT 0.1 /CUMM (0.0-0.7); ABSOLUTE GRANULOCYTE CT 22.4 /CUMM (1.4-6.5); ABSOLUTE LYMPH COUNT 0.8 /CUMM (1.2-3.4); ABSOLUTE MONOCYTE COUNT 0.2 /CUMM (0.10-0.60); BASOPHIL % 0.1 % (0.0-2.0); EOSINOPHIL % 0.4 % (0-5); GRANULOCYTE % 95.4 % (42.2-75.2); HEMATOCRIT 29.7 % (37-47); MEAN CORPUSCULAR HGB 28.6 PG (27.0-31.0); MEAN CORPUSCULAR HGB CONC 33.4 G/DL (33.0-37.0); MEAN CORPUSCULAR VOLUME 85.7 FL (81.0-99.0); MEAN PLATELET VOLUME 7.4 FL (7.4-10.4); PLATELET COUNT 341 /CUMM (130-400); RED BLOOD CELL CT 3.47 /CUMM (4.20-5.40); WHITE BLOOD CELL COUNT 23.5 /CUMM (4.8-10.8)
--- NOTE | 2017-01-22 05:30 | NUR ---
pt remains tachypenic and c/o dyspnea despite breathing treatment. pt has blood tinge sputum. md notified and at bedside. cxr to be done and will reasses.
--- NOTE | 2017-01-22 06:24 | PN- Resident CRCU ---
Subjective HPI/CRCU Issues: Ms Cabrera was seen and examined this morning. She is resting comfortably in bed. Overnight the patient does reports that she did have some difficulty breathing and was unable to "catch her breath". She continues to endorse mild cough. Nonproductive in nature. This morning at the time of our clinical encounter the patient does state that her symptoms have improved and she continues to saturate well on nasal cannula. She denies any fever, chills, nausea, vomiting. 24 Hour Events: Overnight the patient did have increased wheezing and had to be started on IV Solu-Medrol. She was given a one-time dose of IV Solu-Medrol 80 mg. Objective Vital Signs & I&O Last 8 Hrs of Vitals and I&O: T: 96.1 HR: 83. NSR RR:22 Cuff: 138/67 Exam General Appearance: well developed/nourished, no apparent distress, alert, awake , anxious Head: atraumatic, normal appearance Respiratory: normal breath sounds, Increased Wheezing on Left. Cardiovascular: regular rate/rhythm Gastrointestinal: normal bowel sounds, soft, non-tender Extremities: normal inspection, normal capillary refill, normal range of motion, no edema Cranial Nerves: normal hearing, normal speech Current Medications: Current Medications Sig/Niak Start time Last Medication Dose Route Stop Time Status Admin Acetaminophen 650 MG Q6P PRN 01/20 2130 AC PO Acetaminophen 1,000 MG Q6P PRN 01/20 2130 AC N/A 1 UNIT IV Acetylcysteine 2 ML BID 01/210 AC 01/22 INH 0903 Acetylcysteine 4 ML BID 01/21 1111 DC INH Albuterol Sulfate 3 ML TID 01/21 1000 AC 01/22 INH 0902 Ceftazidime 1,000 MG Q12 01/20 2200 AC 01/22 IV 1010 Guaifenesin 600 MG Q12 01/200 AC 01/22 PO 1009 Heparin Sodium 5,000 UNIT Q8 01/20 2200 AC 01/22 (Porcine) SC 0603 Methylprednisolone 80 MG ONCE ONE 01/22 0800 DC 01/22 IV 01/22 0801 0701 Methylprednisolone 40 MG Q6 01/22 0642 AC 01/22 IV 1142 Morphine Sulfate 2 MG Q6P PRN 01/20 2130 AC IV Multivitamins 1 TAB DAILY 01/21 1000 AC 01/22 Therapeutic PO 1009 Nebivolol 20 MG DAILY 01/21 1000 AC 01/22 PO 1142 Ondansetron HCl 4 MG ONCE ONE 01/21 1315 DC 01/21 IV 01/21 1316 1315 Ondansetron HCl 4 MG Q6P PRN 01/20 2200 AC IV Sodium Chloride 1,000 ML Q10H 01/21 1715 DC 01/22 IV 01/22 2314 0602 Sodium Chloride 1,000 ML Q10H 01/20 2130 DC 01/21 IV 01/22 0329 0622 Vancomycin HCl 1,000 MG Q12H 01/21 0700 AC 01/22 Sodium Chloride 250 ML IV 0603 Impression/Plan Impression/Problem List Impression: Ms Cabrera is a 66-year-old female with past medical history of questionable COPD questionable and supraventricular tachycardia who presented to the emergency department on 01/20/2017 after experiencing a worsening cough, shortness of breath and generalized malaise and weakness Her symptoms are right likely related to healthcare associated pneumonia especially in the setting of being exposed to contacts at her extended care facility. Respiratory Sepsis due to Acute hypoxic respiratory failure secondary to lobar pneumonia. Patient did meet sepsis criteria at the time of admission with an elevated temperature (102.2), heart rate (114) and respiratory rate (26) Continue Vancomycin and ceftazidime, may consider narrowing antibiotics in 24 hours. We will continue to monitor cultures. May consider discontinuing vancomycin should the patient improve over the next 24 hours. Initial lower respiratory sputum culture shows light mixed alina after day 1. Continue TRC nebs, chest PT. Incentive spirometer. Aggressive flutter device. Head of bed down. Patient did have a negative flu swab. The patient does have a history of COPD and this infection is likely attributed to COPD exacerbation. Patient is currently on 40 mg every 6 IV Solu-Medrol. Patient will likley need some PO discharge home medications. Repeat C-Xray in am, if no improvement patient may need a bronchoscopy. Cardiology Patient's history of SVT is currently well controlled. She is currently normal sinus rhythm below 100 bpm. If patient develops any rate or rhythm disturbances consider cardiology consult. May want to consider echocardiogram. Continue home medications: Nebivolol. Metabolic Patient was hyponatremic on admission. Likely due to decreased by mouth intake. Discontinued Fluids. Abdomen. Patient offered no compalints. Abdominal ultrasound done at the time of admission showed no intra-abdominal pathology. No evidence of any cholelithiasis. AST/ALT elevated, hepatitis panel, non reactive. Serial abdominal exams. Guaiac all stools. If patient continues to complain of diarrhea consider C. difficile. Advanced diet as tolerated. Renal Improved: Cr 0.8 and BUN 24 IVF discontiued, patient encouraged to increased PO intake. Patient's BUN/creatinine were elevated at the time of admission. Likely due to a CLAUDETTE secondary to hypoperfusion. We'll continue the patient on IV fluids and monitor a BEP in a.m. Diet. Regular diet. DVT prophylaxis Heparin subcutaneous. Code full code Problem List: 1. Fever 2. Hypoxia 3. Pneumonia 4. Viral syndrome Pain Ratin Tomorrow's Labs & Rationales: CBC ICU Bundle Plan DVT/Prophylaxis: pharmacological
[2017-01-22 08:00] VITALS: BP 120/60
--- NOTE | 2017-01-22 09:00 | RADIOLOGY REPORT ---
EXAMINATION: XR PORTABLE CHEST CLINICAL INFORMATION: Previous x-ray showed small pleural effusions as well. Evaluate for consolidation and worsening atelectasis. COMPARISON: Chest x-ray dated 01/20/2017 and 02/23/2014. CTA of the chest dated 01/20/2017. TECHNIQUE: Portable AP semierect view of the chest was obtained. FINDINGS: The cardiac silhouette and left hemidiaphragm are again obscured by a small left-sided pleural effusion, which is partially loculated along the lateral mid left chest wall and by dense consolidation and volume loss in the left lower lobe. When compared to the prior chest x-ray, no significant interval change or improvement in aeration is seen. The right lung remains fully expanded and there is only minimal linear subsegmental atelectasis seen medially in the right lung base. No pneumothorax or evidence of pulmonary edema is seen. Bony structures are grossly unremarkable. IMPRESSION: No significant change in collapse and consolidation of the left lower lobe and associated small partially loculated pleural effusion.
--- NOTE | 2017-01-22 09:13 | PN- CRCU ---
Subjective HPI/Critical Care Issues: The patient has had increased shortness of breath with increased wheezing. She had an ABG that showed hypoxia without hypercarbia. She has had increased work of breathing and was started on IV Solu-Medrol. Chest x-ray shows persistent left lower lobe consolidation and collapse. She is afebrile, now on steroids. Objective Current Medications: Current Medications Sig/Nika Start time Last Medication Dose Route Stop Time Status Admin Acetaminophen 650 MG Q6P PRN 01/20 2130 AC PO Acetaminophen 1,000 MG Q6P PRN 01/20 213 AC N/A 1 UNIT IV Acetylcysteine 2 ML BID 01/21 2200 AC 01/21 INH 2131 Acetylcysteine 4 ML BID 01/21 1111 DC INH Albuterol Sulfate 3 ML TID 01/21 1000 AC 01/22 INH 0422 Ceftazidime 1,000 MG Q12 01/20 2200 AC 01/21 IV 2143 Guaifenesin 600 MG Q12 01/20 2200 AC 01/21 PO 2142 Heparin Sodium 5,000 UNIT Q8 01/20 2200 AC 01/22 (Porcine) SC 0603 Methylprednisolone 80 MG ONCE ONE 01/22 0800 DC 01/22 IV 01/22 0801 0701 Methylprednisolone 40 MG Q6 01/22 0642 AC IV Morphine Sulfate 2 MG Q6P PRN 01/20 2130 AC IV Multivitamins 1 TAB DAILY 01/21 1000 AC 01/21 Therapeutic PO 1002 Nebivolol 20 MG DAILY 01/21 1000 AC 01/21 PO 1115 Ondansetron HCl 4 MG ONCE ONE 01/21 1315 DC 01/21 IV 01/21 1316 1315 Ondansetron HCl 4 MG Q6P PRN 01/20 2200 AC IV Sodium Chloride 1,000 ML Q10H 01/21 1715 DC 01/22 IV 01/22 2314 0602 Sodium Chloride 1,000 ML Q10H 01/20 2130 DC 01/21 IV 01/22 0329 0622 Vancomycin HCl 1,000 MG Q12H 01/21 0700 AC 01/22 Sodium Chloride 250 ML IV 0603 Vital Signs & I&O Last 24 Hrs of Vitals and I&O: Vital Signs Date Time Temp Pulse Resp B/P B/P Pulse O2 O2 Flow FiO2 Mean Ox Delivery Rate 01/22 08 95 Nasal 5.0L Cannula 01/22 0800 96.1 78 22 120/60 97 Nasal 5.0L Cannula 01/22 0434 95 Nasal 5.0L Cannula 01/22 0400 96 Nasal 5.0L Cannula 01/21 2346 97 Nasal 5.0L Cannula 01/21 2346 97.6 78 32 128/68 97 Nasal 5.0L Cannula 01/21 2136 89 Nasal 4.0L Cannula 01/22 2000 93 Nasal 4.0L Cannula 01/21 1600 94 Nasal 4.0L Cannula 01/21 1600 96.8 86 24 110/60 96 Nasal 4.0L Cannula 01/21 1200 92 Nasal 4.0L Cannula 01/21 1015 Nasal 4.0L Cannula 01/21 1014 95 Nasal 4.0L Cannula Intake & Output 01/22 1600 01/22 0800 01/22 0000 Intake Total 1405 1140 Output Total 775 450 Balance 630 690 Intake, IV 805 980 Intake, Oral 600 160 Number 0 Bowel Movements Output, Urine 775 450 Physical Exam General Appearance: well developed/nourished, no apparent distress, alert, awake Head: atraumatic, normal appearance Eyes: Bilateral: normal appearance, PERRL. Ears, Nose, Throat: normal pharynx Neck: normal inspection, supple Respiratory: decreased breath sounds, increased wheezing bilaterally Cardiovascular: regular rate/rhythm Gastrointestinal: normal bowel sounds, soft, non-tender Neurologic/Psych: no motor/sensory deficits, awake, alert, oriented x 3 Results Last 24 Hrs of Lab Results: Laboratory Tests 01/22/17 0650: pH 7.38, pCO2 37, pO2 82, HCO3 22, ABG O2 Sat (Measured) 96.0, P-50 (Temp Corrected) Y, Carboxyhemoglobin 0.3 L, O2 Concentration % 5 LPM, Temperature 97.2, O2 Delivery Method N/C, Phlebotomy Draw Site RIGHT RADIAL 01/22/17 0415: Anion Gap 11, Estimated GFR > 60, BUN/Creatinine Ratio 30.0 H, CBC w Diff MAN DIFF ORDERED, RBC 3.47 L, MCV 85.7, MCH 28.6, RDW 14.0, MPV 7.4, Gran % 95.4 H , Lymphocytes % 3.3 L, Monocytes % 0.8 L, Eosinophils % 0.4, Basophils % 0.1, Absolute Granulocytes 22.4 H, Segmented Neutrophils 94 H, Band Neutrophils 2, Absolute Lymphocytes 0.8 L, Lymphocytes 2 L, Monocytes 2, Absolute Monocytes 0.2, Absolute Eosinophils 0.1, Absolute Basophils 0, Platelet Estimate ADEQUATE, Polychromasia 1+, Ovalocytes FEW, [place] Cells FEW, PUBS MCHC 33.4, Fld Total RBCs Counted 100 Diagnostic Data US Findings: 1. Liver is sonographically normal. 2. Gallbladder is normal; no evidence of cholelithiasis or biliary tract obstruction. Impression/Plan Impression/Plan Impression/Plan: 1. Densely consolidated left lower lobe pneumonia. Urine negative for strep pneumo and legionella, quick flu negative as well. Cultures are negative so far. 2. Acute exacerbation of COPD with increased bronchospasm. 3. History of SVT. 4. Hyponatremia. 5. CLAUDETTE. 6. Transaminitis. Recommendations: * Continue vanco and ceftaz, follow up cultures. Will narrow antibiotics if able. * Continue IV Solumedrol, 40 mg every 6 hours. * Nebs/TRC to continue. * Chest PT with mucomyst - attention to the left lower lobe. * IVFs stopped due to increased shortness of breath. * Try Bipap 10/4, with a respiratory rate of 20 to help with work of breathing. * Continue Mucinex. * Continue on pain pathway. * DVT prophylaxis at all times. * The patient may require a bronchoscopy if the LLL does not re-expand.
--- NOTE | 2017-01-22 14:13 | NUR ---
@0800-PT ALERT AND ORIENTED. IMPULSIVE AND RESTLESS AT TIMES. BEDALARM IN PLACE. AFEBRILE. CONT ON NC 5LNC. O2SAT 96%. INS/EXP WHEEZE AUSCULTATED WITH TACHYPNEA NOTED. PT DENIES DISTRESS AT THIS TIME. PLAN FOR RT TO ATTEMPT BIPAP PLACEMENT AFTER BREAKFAST THIS AM. CXR PENDING. NEBS/CPT PER RT. NSR HR 80S/ BP STABLE. NO CARDIAC DISTRESS NOTED. OOB TO BSC WITH ASSIST OF 1. DARK YELLOW URINE NOTED. SKIN INTACT, ALPS IN PLACE. IV ABX. CONT TO MONITOR CLOSELY. CALL BAKER WITHIN REACH.
--- NOTE | 2017-01-22 14:16 | NUR ---
@1030-PT DID NOT KAREN BIPAP TRIAL. PT PLACED ON HIFLO THERAPY 40% PER RT. PT COMF IN BED. IV SOLU Q6-DUE AT 1200. IV ABX ADMINISTERED ORD.
--- NOTE | 2017-01-22 14:17 | NUR ---
@1330-PT OOB, BED PROVIDED. HAIR WASHED AND SET UP FOR MOUTH CARE. K+ REPLACED WITH 20MEQ KLOR PER ORDER. PT KAREN HIFLO AT THIS TIME. CONT TO MONITOR. CALL BAKER WITHIN REACH.
[2017-01-22 16:00] VITALS: BP 130/66
--- NOTE | 2017-01-22 20:46 | PN- Att Addend ---
Attending Addendum Attending Brief Note Patient still in the ICU, on high flow oxygen could not tolerate the BiPAP. Patient is a febrile was seen by Dr. Gordon and recommendations were given patient started on IV steroids respiratory therapy chest percussion through the chest x-ray still shows the collapse of the lung at the cultures are negative so far she would be continued on the IV antibiotics as recommended by pulmonary and will follow the chest x-ray, if the lung does not reexpand may need a bronchoscopy white count is still elevated Current Medications Sig/Nika Start time Last Medication Dose Route Stop Time Status Admin Acetaminophen 650 MG Q6P PRN 01/20 2130 AC PO Acetaminophen 1,000 MG Q6P PRN 01/20 213 AC N/A 1 UNIT IV Acetylcysteine 2 ML BID 01/21 2200 AC 01/22 INH 0903 Acetylcysteine 4 ML BID 01/21 1111 DC INH Albuterol Sulfate 3 ML TID 01/21 1000 AC 01/22 INH 1405 Ceftazidime 1,000 MG Q12 01/20 220 AC 01/22 IV 1010 Docusate Sodium 100 MG DAILY NEEDED PRN 01/22 1415 AC PO Guaifenesin 600 MG Q12 01/20 2200 AC 01/22 PO 1009 Heparin Sodium 5,000 UNIT Q8 01/20 2200 AC 01/22 (Porcine) SC 1404 Methylprednisolone 80 MG ONCE ONE 01/22 0800 DC 01/22 IV 01/22 0801 0701 Methylprednisolone 40 MG Q6 01/22 0642 AC 01/22 IV 1755 Morphine Sulfate 2 MG Q6P PRN 01/20 2130 AC IV Multivitamins 1 TAB DAILY 01/21 1000 AC 01/22 Therapeutic PO 1009 Nebivolol 20 MG DAILY 01/21 1000 AC 01/22 PO 1142 Ondansetron HCl 4 MG Q6P PRN 01/20 2200 AC IV Potassium Chloride 20 MEQ BID 01/22 1225 AC 01/22 PO 1404 Senna 187 MG AT BEDTIME 01/22 220 AC PO Sodium Chloride 1,000 ML Q10H 01/21 1715 DC 01/22 IV 01/22 2314 0602 Vancomycin HCl 1,000 MG Q12H 01/21 0700 AC 01/22 Sodium Chloride 250 ML IV 1755 Laboratory Tests 01/22/17 0650: pH 7.38, pCO2 37, pO2 82, HCO3 22, ABG O2 Sat (Measured) 96.0, P-50 (Temp Corrected) Y, Carboxyhemoglobin 0.3 L, O2 Concentration % 5 LPM, Temperature 97.2, O2 Delivery Method N/C, Phlebotomy Draw Site RIGHT RADIAL 01/22/17 0415: Anion Gap 11, Estimated GFR > 60, BUN/Creatinine Ratio 30.0 H, CBC w Diff MAN DIFF ORDERED, RBC 3.47 L, MCV 85.7, MCH 28.6, RDW 14.0, MPV 7.4, Gran % 95.4 H , Lymphocytes % 3.3 L, Monocytes % 0.8 L, Eosinophils % 0.4, Basophils % 0.1, Absolute Granulocytes 22.4 H, Segmented Neutrophils 94 H, Band Neutrophils 2, Absolute Lymphocytes 0.8 L, Lymphocytes 2 L, Monocytes 2, Absolute Monocytes 0.2, Absolute Eosinophils 0.1, Absolute Basophils 0, Platelet Estimate ADEQUATE, Polychromasia 1+, Ovalocytes FEW, [place] Cells FEW, PUBS MCHC 33.4, Fld Total RBCs Counted 100 Vital Signs Date Time Temp Pulse Resp B/P B/P Pulse O2 O2 Flow FiO2 Mean Ox Delivery Rate 01/23 2000 98 Nasal 40% Cannula 01/23 1600 98 Nasal 40% Cannula 01/23 1600 96.4 80 22 130/66 98 Nasal 40% Cannula Intake & Output 01/23 1600 Intake Total 550 Output Total 900 Balance -350 Intake, IV 50 Intake, Oral 500 Number 0 Bowel Movements Output, Urine 900
[2017-01-22 23:59] VITALS: BP 140/74
--- NOTE | 2017-01-23 06:21 | PN- Resident CRCU ---
Subjective HPI/CRCU Issues: Ms Cabrera was seen and examined this morning. Reports no issues overnight. States that she feels her breathing is better. She contiues to be on the Nasal High Flow (40%). She continues to ensorse a cough. Non productive in nature. The patient does endorse that she was unable to sleep very much overnight, owing to not being tired. She denies and Fever, chills, nausea or vomiting. Objective Vital Signs & I&O Last 8 Hrs of Vitals and I&O: T:96.8 [place]: 86 BP: 119/68 Pulse Ox: 97. 6.0l NC Intake & Output 01/23 1600 Intake Total Output Total Balance Patient 73.028 kg Weight Exam General Appearance: well developed/nourished, no apparent distress, alert, awake , comfortable Head: atraumatic, normal appearance Respiratory: normal breath sounds, wheezing Cardiovascular: regular rate/rhythm Gastrointestinal: normal bowel sounds, soft, non-tender Extremities: normal inspection, normal capillary refill, normal range of motion Cranial Nerves: PERRL Skin: intact, normal color Skin Temp/Moisture Exam: Warm/Dry Current Medications: Current Medications Sig/Nika Start time Last Medication Dose Route Stop Time Status Admin Acetaminophen 650 MG Q6P PRN 01/20 2130 AC PO Acetaminophen 1,000 MG Q6P PRN 01/20 2130 AC N/A 1 UNIT IV Acetylcysteine 2 ML BID 01/21 2200 AC 01/23 INH 0917 Albuterol Sulfate 3 ML TID 01/21 1000 AC 01/23 INH 0916 Bisacodyl 10 MG ONCE ONE 01/23 0930 AC [place] 01/23 0931 Ceftazidime 1,000 MG Q12 01/20 2200 AC 01/22 IV 2154 Docusate Sodium 100 MG DAILY NEEDED PRN 01/22 1415 AC PO Guaifenesin 600 MG Q12 01/20 2200 AC 01/22 PO 2154 Heparin Sodium 5,000 UNIT Q8 01/20 2200 AC 01/23 (Porcine) SC 0554 Methylprednisolone 40 MG Q6 01/22 0642 AC 01/23 IV 0554 Morphine Sulfate 2 MG Q6P PRN 01/20 2130 AC IV Multivitamins 1 TAB DAILY 01/21 1000 AC 01/22 Therapeutic PO 1009 Nebivolol 20 MG DAILY 04/24 1000 AC 01/22 PO 1142 Ondansetron HCl 4 MG Q6P PRN 01/20 2200 AC IV Potassium Chloride 20 MEQ BID 01/22 1225 AC 01/22 PO 2154 Senna 187 MG AT BEDTIME 01/22 2200 AC 01/22 PO 2155 Vancomycin HCl 1,000 MG Q12H 01/21 0700 AC 01/23 Sodium Chloride 250 ML IV 0630 Impression/Plan Impression/Problem List Impression: Ms Cabrera is a 66-year-old female with past medical history of questionable COPD questionable and supraventricular tachycardia who presented to the emergency department on 01/20/2017 after experiencing a worsening cough, shortness of breath and generalized malaise and weakness Respiratory Sepsis due to Acute hypoxic respiratory failure secondary to lobar pneumonia. Patient did meet sepsis criteria at the time of admission with an elevated temperature (102.2), heart rate (114) and respiratory rate (26) Continue Vancomycin and ceftazidime, may consider narrowing antibiotics in 24 hours. We will continue to monitor cultures. Antibiotics changed to Azithromycin and Ceftriaxone. Initial lower respiratory sputum culture shows light mixed alina after day 1. Continue TRC nebs, chest PT. Incentive spirometer. Aggressive flutter device. LRC ordered 01/23/2017. Patient did have a negative flu swab. The patient does have a history of COPD and this infection is likely attributed to a component of COPD exacerbation. Patient is currently on 40 mg every 6 IV Solu-Medrol. Patient will likley need some PO discharge home medications. May consider repeating C-Xray, if patient does not improve and bronchoscopy if necessarry. Cardiology Patient's history of SVT is currently well controlled. She is currently normal sinus rhythm below 100 bpm. If patient develops any rate or rhythm disturbances consider cardiology consult.Continue home medications: Nebivolol. May want to consider echocardiogram. Metabolic Patient was hyponatremic on admission. Na today: 134. Abdomen. Patient offered no compalints. Abdominal ultrasound done at the time of admission showed no intra-abdominal pathology. No evidence of any cholelithiasis. AST/ALT elevated, hepatitis panel, non reactive. Serial abdominal exams. Guaiac all stools. Advanced diet as tolerated. Renal Improved: Cr 0.7 and BUN 20 IVF discontiued, patient encouraged to increased PO intake. Patient's BUN/creatinine were elevated at the time of admission. Likely due to a CLAUDETTE secondary to hypoperfusion. BEP in a.m. Diet. Regular diet. DVT prophylaxis Heparin subcutaneous. Code full code Problem List: 1. Pneumonia 2. Hypoxia 3. Fever Pain Ratin Tomorrow's Labs & Rationales: CBC ICU Bundle Plan DVT/Prophylaxis: pharmacological
[2017-01-23 06:36] LABS: ABSOLUTE BASOPHIL COUNT 0 /CUMM (0.0-0.2); ABSOLUTE EOSINOPHIL COUNT 0 /CUMM (0.0-0.7); ABSOLUTE LYMPH COUNT 0.8 /CUMM (1.2-3.4); ABSOLUTE MONOCYTE COUNT 0.1 /CUMM (0.10-0.60); BASOPHIL % 0 % (0.0-2.0); EOSINOPHIL % 0.1 % (0-5); GRANULOCYTE % 94.3 % (42.2-75.2); HEMATOCRIT 29.5 % (37-47); MEAN CORPUSCULAR HGB 28.3 PG (27.0-31.0); MEAN CORPUSCULAR HGB CONC 33.3 G/DL (33.0-37.0); MEAN CORPUSCULAR VOLUME 84.9 FL (81.0-99.0); MEAN PLATELET VOLUME 7.1 FL (7.4-10.4); PLATELET COUNT 430 /CUMM (130-400); RBC DISTRIBUTION WIDTH 13.7 % (11.5-14.5); RED BLOOD CELL CT 3.47 /CUMM (4.20-5.40); WHITE BLOOD CELL COUNT 15.9 /CUMM (4.8-10.8)
[2017-01-23 08:00] VITALS: BP 146/80
--- NOTE | 2017-01-23 10:08 | PN- CRCU ---
Subjective HPI/Critical Care Issues: The patient is awake and alert. She feels much improved overall. Her shortness of breath has improved. She denies any new complaints. There were no overnight events. Objective Current Medications: Current Medications Sig/Nika Start time Last Medication Dose Route Stop Time Status Admin Acetaminophen 650 MG Q6P PRN 01/20 2130 AC PO Acetaminophen 1,000 MG Q6P PRN 01/20 2130 AC N/A 1 UNIT IV Acetylcysteine 2 ML BID 01/21 2200 AC 01/23 INH 0917 Albuterol Sulfate 3 ML TID 01/21 1000 AC 01/23 INH 0916 Bisacodyl 10 MG ONCE ONE 01/23 0930 DC 01/23 [place] 01/23 0931 0932 Ceftazidime 1,000 MG Q12 01/20 2200 AC 01/23 IV 0932 Docusate Sodium 100 MG DAILY NEEDED PRN 01/22 1415 AC PO Guaifenesin 600 MG Q12 01/20 2200 AC 01/23 PO 0931 Heparin Sodium 5,000 UNIT Q8 01/20 2200 AC 01/23 (Porcine) SC 0554 Methylprednisolone 40 MG Q6 01/22 0642 AC 01/23 IV 0554 Morphine Sulfate 2 MG Q6P PRN 01/20 2130 AC IV Multivitamins 1 TAB DAILY 01/21 1000 AC 01/23 Therapeutic PO 0931 Nebivolol 20 MG DAILY 01/21 1000 AC 01/23 PO 0932 Ondansetron HCl 4 MG Q6P PRN 01/200 AC IV Phosphate 250 MG ONCE ONE 01/23 1000 DC PO 01/23 1001 Potassium Chloride 20 MEQ BID 01/22 1225 AC 01/23 PO 0931 Senna 187 MG AT BEDTIME 01/22 2200 AC 01/22 PO 2155 Vancomycin HCl 1,000 MG Q12H 01/21 0700 AC 01/23 Sodium Chloride 250 ML IV 0630 Vital Signs & I&O Last 24 Hrs of Vitals and I&O: Vital Signs Date Time Temp Pulse Resp B/P B/P Pulse O2 O2 Flow FiO2 Mean Ox Delivery Rate 01/23 0932 86 119/68 01/23 0920 97 Nasal 6.0L Cannula 01/23 0800 96.8 84 26 146/80 99 Nasal 40% Cannula 01/23 0800 99 Nasal 40% Cannula 01/23 0400 95 Nasal 40% Cannula 01/23 0240 99 Nasal 40% Cannula 01/23 0000 97 Nasal 40% Cannula 01/22 2359 97.9 82 30 140/74 97 Nasal 40% Cannula 01/22 2050 98 Nasal 40% Cannula 01/23 2000 98 Nasal 40% Cannula 01/22 1600 98 Nasal 40% Cannula 01/22 1600 96.4 80 22 130/66 98 Nasal 40% Cannula 01/22 1200 95 Nasal 40% Cannula 01/22 1142 83 138/67 Intake & Output 01/23 1600 01/23 0800 01/23 0000 Intake Total 840 800 Output Total 1025 970 Balance -185 -170 Intake, IV 450 310 Intake, Oral 390 490 Output, Urine 1025 970 Physical Exam General Appearance: well developed/nourished, no apparent distress, alert, awake Head: atraumatic, normal appearance Eyes: Bilateral: normal appearance, PERRL. Ears, Nose, Throat: normal pharynx Neck: normal inspection, supple Respiratory: decreased breath sounds, increased wheezing bilaterally Cardiovascular: regular rate/rhythm Gastrointestinal: normal bowel sounds, soft, non-tender Impression/Plan Impression/Plan Impression/Plan: 1. Densely consolidated left lower lobe pneumonia. Urine negative for strep pneumo and legionella, quick flu negative as well. Cultures are negative so far. 2. Acute exacerbation of COPD with increased bronchospasm. 3. History of SVT. 4. Hyponatremia. 5. CLAUDETTE. 6. Transaminitis. 7. Group A strep. Recommendations: * Change to ceftriaxone and azithromycin. * Continue IV Solumedrol, 40 mg every 6 hours. * Nebs/TRC to continue. * Chest PT with mucomyst - attention to the left lower lobe. * Encourage PO intake. * Continue high flow oxygen. * Continue Mucinex. * Continue on pain pathway. * DVT prophylaxis at all times. * The patient may require a bronchoscopy if the LLL does not re-expand.
--- NOTE | 2017-01-23 11:41 | NUR ---
@0800-PT ALERT AND ORIENTED. RESTLESS AT TIMES. FOLLOWS COMMANDS. CAN BE FORGETFUL WITH INSTRUCTIONS GIVEN. BED ALARM REMAINS IN PLACE FOR PT SAFETY. CONT ON HIFLO O2 NC-40%. 02SAT 95%-97%. EXP WHEEZE AUSCULTATED. BREATHSOUNDS IMPROVED COMPARED TO YEST ASSESSMENT. NO EXERTIONAL BREATHING NOTED AT THIS TIME. WILL SEND LRC IF SPUTUM AVAIL. IV SOLU Q6HRS. PT TO RECIEVE NEBS AND CPT PER RT. NSR HR 80S. BP STABLE. REG DIET PROVIDED. NO BM X 7 DAYS. ON COLACE AND SENNA REGIMEN BUT WILL OBTAIN ORDER FOR KAREN SUPP THIS AM. SKIM INTACT. OOB ASSIST X 1 TO CHAIR AND BSC. PHOS 2.1-WILL REPORT FINDINGS TO HOUSESTAFF. PT DENIES PAIN. CONT TO MONITOR CLOSELY. CALL BAKER WITHIN REACH.
--- NOTE | 2017-01-23 11:44 | NUR ---
@1000-PT OOB TO CHAIR. AM HYGIENE PROVIDED AT THIS TIME. NEURTAPHOS ADMINISTERED FOR PHOS LEVEL OF 2.1. IV ABX BEING SWITCHED TO ROCEPHIN AND ZITHRO-AWAITING ARRIVAL FROM PHARMACY. CONT TO MONITOR. CALL BAKER WITHIN REACH.
--- NOTE | 2017-01-23 11:44 | NUR ---
@0830-PT O2 THERAPY CHANGED TO NC 5L FROM HIFLO PER RT. O2SAT 96%. PT KAREN WELL AT THIS TIME.
--- NOTE | 2017-01-23 12:56 | NUR ---
@1245-IV ABX ZITHRO INFUSING ORD. ASSISTED PT BACK TO BED AFTER BM ON BSC. SON AT BEDSIDE. CONT TO MONITOR.
[2017-01-23 16:00] VITALS: BP 138/70
--- NOTE | 2017-01-23 19:26 | PN- Att Addend ---
Attending Addendum Attending Brief Note Patient looked and feels better today less short of breath our nasal oxygen continuing chest percussion atorvastatin therapy. Vital signs are stable oxygenation is improved with no major changes on physical except that the patient is not as short of breath and able to talk complete sentences. Appreciate Dr. Kimble's input and recommendations. Antibiotics were adjusted continue to follow blood work chest x-ray and if the lung doesn't reexpand, still may need a bronchoscopy Current Medications Sig/Nika Start time Last Medication Dose Route Stop Time Status Admin Acetaminophen 650 MG Q6P PRN 01/20 2130 AC PO Acetaminophen 1,000 MG Q6P PRN 01/20 2130 AC N/A 1 UNIT IV Acetylcysteine 2 ML BID 01/21 2200 AC 01/23 INH 0917 Albuterol Sulfate 3 ML TID 01/21 1000 AC 01/23 INH 1343 Azithromycin 500 MG DAILY 01/23 1018 AC 01/23 Sodium Chloride 250 ML IV 1246 Bisacodyl 10 MG ONCE ONE 01/23 0930 DC 01/23 [place] 01/23 0931 0932 Ceftazidime 1,000 MG Q12 01/20 2200 DC 01/23 IV 0932 Ceftriaxone Sodium 2,000 MG DAILY 01/23 1018 AC 01/23 IV 1131 Docusate Sodium 100 MG DAILY NEEDED PRN 01/22 1415 AC PO Guaifenesin 600 MG Q12 01/20 2200 AC 01/23 PO 0931 Heparin Sodium 5,000 UNIT Q8 01/20 2200 AC 01/23 (Porcine) SC 1413 Insulin Aspart 1 UNITS .STK-MED ONE 01/23 0723 [facility] 01/23 0724 Insulin Detemir 1 UNITS .STK-MED ONE 01/23 0722 [facility] 01/23 0723 Insulin Human Regular 1 UNITS .STK-MED ONE 01/23 0722 DC IV 01/23 0723 Methylprednisolone 40 MG Q6 01/22 0642 AC 01/23 IV 1805 Morphine Sulfate 2 MG Q6P PRN 01/20 2130 AC IV Multivitamins 1 TAB DAILY 01/21 1000 AC 01/23 Therapeutic PO 0931 Nebivolol 20 MG DAILY 01/21 1000 AC 01/23 PO 0932 Ondansetron HCl 4 MG Q6P PRN 01/20 2200 AC IV Phosphate 250 MG ONCE ONE 01/23 1000 DC 01/23 PO 01/23 1001 1031 Potassium Chloride 20 MEQ BID 01/22 1225 AC 01/23 PO 0931 Senna 187 MG AT BEDTIME 01/22 2200 AC 01/22 PO 2155 Vancomycin HCl 1,000 MG Q12H 01/21 0700 DC 01/23 Sodium Chloride 250 ML IV 0630 Laboratory Tests 01/23/17 0622: Anion Gap 12, Estimated GFR > 60, Glucose 115 H, Calcium 8.0 L, Phosphorus 2.1 L, Magnesium 2.0, Total Bilirubin 0.8, AST 38 H, ALT 59 H, Albumin 2.4 L, CBC w Diff MAN DIFF ORDERED, RBC 3.47 L, MCV 84.9, MCH 28.3, RDW 13.7, MPV 7.1 L, Gran % 94.3 H, Lymphocytes % 4.8 L, Monocytes % 0.8 L, Eosinophils % 0.1, Basophils % 0 L, Absolute Granulocytes 15.0 H, Segmented Neutrophils 80 H, Band Neutrophils 2, Absolute Lymphocytes 0.8 L, Lymphocytes 13 L, Monocytes 5, Absolute Monocytes 0.1 L, Absolute Eosinophils 0, Absolute Basophils 0, Platelet Estimate INCREASED, Polychromasia 1+, Ovalocytes FEW, PUBS MCHC 33.3, Fld Total RBCs Counted 100 Microbiology Date/Time Procedure - Status Source Growth 01/23 939 Respiratory Culture - COLB LOWER RESP 01/23 939 Gram Stain - COLB LOWER RESP Vital Signs Date Time Temp Pulse Resp B/P B/P Pulse O2 O2 Flow FiO2 Mean Ox Delivery Rate 01/23 1600 96 Nasal 4.0L Cannula 01/23 1600 81.0 81 18 138/70 96 Nasal 4.0L Cannula 01/23 1345 100 Nasal 6.0L Cannula 01/23 1200 95 Nasal 5.0L Cannula 01/23 0932 86 119/68 01/23 0920 97 Nasal 6.0L Cannula 01/23 0800 96.8 84 26 146/80 99 Nasal 40% Cannula 01/23 0800 99 Nasal 40% Cannula 01/23 0400 95 Nasal 40% Cannula 01/23 0240 99 Nasal 40% Cannula 01/23 0000 97 Nasal 40% Cannula 01/22 2359 97.9 82 30 140/74 97 Nasal 40% Cannula 01/22 2050 98 Nasal 40% Cannula 01/23 2000 98 Nasal 40% Cannula Intake & Output 01/23 1600 01/23 0800 01/23 0000 Intake Total 910 840 800 Output Total 850 1025 970 Balance 60 -185 -170 Intake, IV 330 450 310 Intake, Oral 580 390 490 Number 2 Bowel Movements Output, Urine 850 1025 970 Patient 161 lb Weight
[2017-01-24] VITALS: BP 130/80
--- NOTE | 2017-01-24 01:29 | NUR ---
PATIENT ALERT AND VERBALLY APPROPRIATE.MONITOR SINUS RHYTHM AT RATE OF 78. KI=508/80. NASAL O2 ON AT 4L. O2 SAT=98%.OOB TO BEDSIDE COMMODE.NO DYSPNEA NOTED. OCCASIONAL NON PRODUCTIVE COUGH.
[2017-01-24 05:28] LABS: ABSOLUTE BASOPHIL COUNT 0 /CUMM (0.0-0.2); ABSOLUTE EOSINOPHIL COUNT 0 /CUMM (0.0-0.7); ABSOLUTE GRANULOCYTE CT 13.5 /CUMM (1.4-6.5); ABSOLUTE LYMPH COUNT 0.8 /CUMM (1.2-3.4); ABSOLUTE MONOCYTE COUNT 0.1 /CUMM (0.10-0.60); BASOPHIL % 0 % (0.0-2.0); EOSINOPHIL % 0.1 % (0-5); GRANULOCYTE % 93.9 % (42.2-75.2); HEMATOCRIT 28.5 % (37-47); MEAN CORPUSCULAR HGB 28.5 PG (27.0-31.0); MEAN CORPUSCULAR HGB CONC 33.6 G/DL (33.0-37.0); MEAN CORPUSCULAR VOLUME 84.9 FL (81.0-99.0); MEAN PLATELET VOLUME 7.6 FL (7.4-10.4); PLATELET COUNT 423 /CUMM (130-400); RBC DISTRIBUTION WIDTH 14.1 % (11.5-14.5); RED BLOOD CELL CT 3.36 /CUMM (4.20-5.40); WHITE BLOOD CELL COUNT 14.4 /CUMM (4.8-10.8)
--- NOTE | 2017-01-24 06:18 | PN- Resident CRCU ---
Subjective HPI/CRCU Issues: Ms. Cabrera was seen and examined this morning. Resting comfortably in the chair beside her bed. She reports she feels much better. Currently on supplemental oxygen nasal cannula 4 L. Denies any fever, chills, nausea, vomiting. Had a BM last evening Tolerating by mouth intake well. Aggressive incentive spirometer encouraged. . 24 Hour Events: No Events Reported Objective Vital Signs & I&O Last 8 Hrs of Vitals and I&O: T96.4-97.8 HR: 66-96 RR: 18-34 119/52- 169/81 Hif[place] --> 4L NC O2 Saturation: 96%-99% SI:850mL SII:750 mL SIII: 1000mL Exam General Appearance: well developed/nourished Neck: normal inspection Respiratory: normal breath sounds, Right Side Wheezing Cardiovascular: regular rate/rhythm Gastrointestinal: normal bowel sounds, soft, non-tender Extremities: normal inspection Cranial Nerves: normal hearing, normal speech Skin: intact, normal color Skin Temp/Moisture Exam: Warm/Dry Current Medications: Current Medications Sig/Nika Start time Last Medication Dose Route Stop Time Status Admin Acetaminophen 650 MG Q6P PRN 01/20 2130 AC PO Acetaminophen 1,000 MG Q6P PRN 01/20 2130 AC N/A 1 UNIT IV Acetylcysteine 2 ML BID 01/21 2200 AC 01/23 INH 194 Albuterol Sulfate 3 ML TID 01/21 1000 AC 01/23 INH 194 Azithromycin 500 MG DAILY 01/23 1018 AC 01/23 Sodium Chloride 250 ML IV 1246 Bisacodyl 10 MG ONCE ONE 01/23 0930 DC 01/23 CA 01/23 0931 0932 Ceftazidime 1,000 MG Q12 01/20 220 DC 01/23 IV 0932 Ceftriaxone Sodium 2,000 MG DAILY 01/23 1018 AC 01/23 IV 1131 Docusate Sodium 100 MG DAILY NEEDED PRN 01/22 1415 AC PO Guaifenesin 600 MG Q12 01/20 2200 AC 01/23 PO 2110 Heparin Sodium 5,000 UNIT Q8 01/20 2200 AC 01/24 (Porcine) SC 0600 Magnesium Oxide 400 MG ONE ONE 01/24 0700 DC PO 01/24 0701 Methylprednisolone 40 MG Q6 01/22 0642 AC 01/24 IV 0553 Morphine Sulfate 2 MG Q6P PRN 01/20 2130 AC IV Multivitamins 1 TAB DAILY 01/21 1000 AC 01/23 Therapeutic PO 0931 Nebivolol 20 MG DAILY 01/21 1000 AC 01/23 PO 0932 Ondansetron HCl 4 MG Q6P PRN 01/20 2200 AC IV Phosphate 250 MG ONCE ONE 01/24 0700 DC PO 01/24 0701 Phosphate 250 MG ONCE ONE 01/23 1000 DC 01/23 PO 01/23 1001 1031 Potassium Chloride 20 MEQ BID 01/22 1225 DC 01/23 PO 0931 Senna 187 MG AT BEDTIME 01/22 2200 AC 01/22 PO 2155 Vancomycin HCl 1,000 MG Q12H 01/21 0700 DC 01/23 Sodium Chloride 250 ML IV 0630 Impression/Plan Impression/Problem List Impression: Ms Cabrera is a 66-year-old female with past medical history of questionable COPD questionable and supraventricular tachycardia who presented to the emergency department on 01/20/2017 after experiencing a worsening cough, shortness of breath and generalized malaise and weakness Respiratory Sepsis due to Acute hypoxic respiratory failure secondary to lobar pneumonia. Patient did meet sepsis criteria at the time of admission with an elevated temperature (102.2), heart rate (114) and respiratory rate (26) Continue Vancomycin and ceftazidime, may consider narrowing antibiotics in 24 hours. We will continue to monitor cultures. Antibiotics changed to Azithromycin (day two ) and Ceftriaxone (day two). Initial lower respiratory sputum culture shows Yeast and Staph Aureus, will await sensitivities. Continue TRC nebs, chest PT with mucomyst, attention to left lower lobe. Incentive spirometer. Aggressive flutter device. LRC ordered 01/23/2017. Patient did have a negative flu swab. The patient does have a history of COPD and this infection is likely attributed to a component of COPD exacerbation. Patient is currently on 40 mg every 6 IV Solu-Medrol-->Prednisone taper 40 mg, 40 mg (01/24 and 01/25) 30 mg (01/26 and 01/27) 20 mg (01/28 and 01/29) 10 mg ( 01/30 and 01/31) 5 mg (02/01 and 02/02). Patient will paulley need some PO discharge home medications. Repeat C-Xray in am. Cardiology Patient's history of SVT is currently well controlled. She is currently normal sinus rhythm below 100 bpm. If patient develops any rate or rhythm disturbances consider cardiology consult.Continue home medications: Nebivolol. May want to consider echocardiogram. Metabolic Patient was hyponatremic on admission. Na today: 137. GI Patient offered no complaints. Abdominal ultrasound done at the time of admission showed no intra-abdominal pathology. No evidence of any cholelithiasis. AST/ALT elevated, hepatitis panel, non reactive. Serial abdominal exams. Patient had a BM. Guaiac all stools. H/H Currently stable. Advanced diet as tolerated. Renal Improved: Cr 0.7 and BUN 20 IVF discontiued, patient encouraged to increased PO intake. Patient's BUN/creatinine were elevated at the time of admission. Likely due to a CLAUDETTE secondary to hypoperfusion. BEP in a.m. Endocrinology TSH and free T4. Rule out Hypothyroidism. Diet. Regular diet. DVT prophylaxis Heparin subcutaneous. Code Full code Problem List: 1. Hypoxia 2. Pneumonia 3. Fever 4. CLAUDETTE (acute kidney injury) 5. History of supraventricular tachycardia Pain Ratin Tomorrow's Labs & Rationales: CBC ICU Bundle Plan DVT/Prophylaxis: pharmacological
[2017-01-24 08:00] VITALS: BP 156/68
--- NOTE | 2017-01-24 12:41 | RADIOLOGY REPORT ---
EXAMINATION: XR PORTABLE CHEST CLINICAL INFORMATION: Evaluate for consolidation and worsening atelectasis. Previous x-ray showed small pleural effusions as well. COMPARISON: Chest x-ray dated 01/22/2017, 01/20/2017 and 02/23/2014. TECHNIQUE: Portable AP semierect view of the chest was obtained. FINDINGS: The cardiomediastinal silhouette is within normal limits in size and again partially obscured by a dense left lung base opacity, shown on prior CT scan to represent consolidation and small loculated left-sided pleural effusion. Compared to the prior chest x-ray from 01/22/2017, the amount of pleural fluid has diminished with no significant change in left basilar consolidation. The right lung is fully expanded and remains clear. No pneumothorax is seen. Bony structures are unremarkable. IMPRESSION: Interval slight decrease in size of left-sided loculated pleural effusion with no significant interval change in the left lower lung consolidation.
--- NOTE | 2017-01-24 13:25 | NUR ---
SHIFT NOTE 6026-2516: PT A+OX3, NSR ON MONITOR. B/P 150-160'S. AFEBRILE. STARTED SHIFT ON 4L NC DOWN TO 2L NC AT THIS TIME. LUNGS DIMINISHED. ON CHEST PT AND CHANGED FROM IV SOLUMEDROL TO PO PREDNISONE. ABDOMEN SOFT. +BS, VOIDING IN BED SIDE COMMODE. SKIN INTACT. ON IV ABX. NEW IV PLACED HAND IV'S WERE BURNING. NO COUGH NOTED. RECEIVED PO MAG AND PO NEUTRAPHOS. PT AMBULATED AROUND UNIT WITH RN, STEADY GAIT NOTED. WILL MONITOR.
--- NOTE | 2017-01-24 15:34 | PN- Att Addend ---
Attending Addendum Attending Brief Note Patient feeling better, is short of breath. On 4 L nasal 2 oxygenating well. Vital signs are stable no major changes on physical. Last chest x-ray may be in less left pleural fluid infiltrated about the same continuing respiratory therapy. Stable to transfer out of the intensive care unit and will continue antibiotic treatment, respiratory therapy follow-up labs and chest x-rays. Patient was unable to get sputum analysis. Current Medications Sig/Nika Start time Last Medication Dose Route Stop Time Status Admin Acetaminophen 650 MG Q6P PRN 01/20 2130 AC PO Acetaminophen 1,000 MG Q6P PRN 01/20 2130 AC N/A 1 UNIT IV Acetylcysteine 2 ML BID 01/21 2200 AC 01/24 INH 0855 Albuterol Sulfate 3 ML TID 01/21 1000 AC 01/24 INH 1324 Azithromycin 500 MG DAILY 01/23 1018 AC 01/24 Sodium Chloride 250 ML IV 1036 Ceftriaxone Sodium 2,000 MG DAILY 01/23 1018 AC 01/24 IV 1036 Docusate Sodium 100 MG DAILY NEEDED PRN 01/22 1415 AC PO Guaifenesin 600 MG Q12 01/20 2200 AC 01/24 PO 1036 Heparin Sodium 5,000 UNIT Q8 01/20 2200 AC 01/24 (Porcine) SC 1311 Magnesium Oxide 400 MG ONE ONE 01/24 0700 DC 01/24 PO 01/24 0701 0822 Methylprednisolone 40 MG Q6 01/22 0642 DC 01/24 IV 0553 Morphine Sulfate 2 MG Q6P PRN 01/20 2130 AC IV Multivitamins 1 TAB DAILY 01/21 1000 AC 01/24 Therapeutic PO 1036 Nebivolol 20 MG DAILY 01/21 1000 AC 01/24 PO 1036 Ondansetron HCl 4 MG Q6P PRN 01/20 2200 AC IV Phosphate 250 MG ONCE ONE 01/24 0700 DC 01/24 PO 01/24 0701 0821 Potassium Chloride 20 MEQ BID 01/22 1225 DC 01/23 PO 0931 Prednisone 5 MG DAILY 02/01 1000 AC PO 02/02 1001 Prednisone 10 MG DAILY 01/30 1000 AC PO 01/31 1001 Prednisone 20 MG DAILY 01/28 1000 AC PO 01/29 1001 Prednisone 30 MG DAILY 01/26 1000 AC PO 01/27 1001 Prednisone 40 MG DAILY 01/24 1041 AC 01/24 PO 01/25 1001 1310 Senna 187 MG AT BEDTIME 01/22 2200 AC 01/22 PO 2155 Laboratory Tests 01/24/17 0400: Anion Gap 10, Estimated GFR > 60, Glucose 113 H, Calcium 7.9 L, Phosphorus 3.6 , Magnesium 1.9, Total Bilirubin 0.7, AST 59 H, ALT 66 H, Albumin 2.3 L, TSH 0.435, Free T4 0.93, CBC w Diff MAN DIFF ORDERED, RBC 3.36 L, MCV 84.9, MCH 28.5, RDW 14.1, MPV 7.6, Gran % 93.9 H, Lymphocytes % 5.6 L, Monocytes % 0.4 L, Eosinophils % 0.1, Basophils % 0 L, Absolute Granulocytes 13.5 H, Segmented Neutrophils 81 H, Band Neutrophils 3, Absolute Lymphocytes 0.8 L, Lymphocytes 12 L, Monocytes 4, Absolute Monocytes 0.1 L, Absolute Eosinophils 0, Absolute Basophils 0, Platelet Estimate INCREASED, Normocytic RBCs VERIFIED, Polychromasia 1+, Basophilic Stippling RARE, PUBS MCHC 33.6, Fld Total RBCs Counted 100 Vital Signs Date Time Temp Pulse Resp B/P B/P Pulse O2 O2 Flow FiO2 Mean Ox Delivery Rate 01/24 1036 78 144/70 01/24 0906 95 Nasal 3.0L Cannula 01/24 0800 Nasal 4.0L Cannula 01/24 0800 97.4 65 24 156/68 94 Nasal 4.0L Cannula Intake & Output 01/24 1600 Intake Total 1040 Output Total 400 Balance 640 Intake, IV 320 Intake, Oral 720 Number 0 Bowel Movements Output, Urine 400
[2017-01-24 16:00] VITALS: BP 134/94
--- NOTE | 2017-01-24 20:11 | NUR ---
PATIENT ALERT AND ORIENTED. NASAL O2 ON AT 2L.NO DYSPNEA NOTED.SAT=93%.PREPARED FOR TRANSFER TO [facility] GEN MED PATIENT.
[2017-01-24 20:50] VITALS: BP 142/72
[2017-01-24 23:59] VITALS: BP 150/80
[2017-01-25 08:30] VITALS: BP 142/74
--- NOTE | 2017-01-25 09:50 | PN- Pulmonary ---
Subjective HPI/Critical Care Issues: The patient is awake and alert. She reports feeling markedly improved. There were no overnight events reported. She denies any new complaints today. Objective Current Medications: Current Medications Sig/Nika Start time Last Medication Dose Route Stop Time Status Admin Acetaminophen 650 MG Q6P PRN 01/20 2130 AC PO Acetaminophen 1,000 MG Q6P PRN 01/20 2130 DC N/A 1 UNIT IV Acetylcysteine 2 ML BID 01/21 2200 AC 01/25 INH 0838 Albuterol Sulfate 3 ML TID 01/21 1000 AC 01/25 INH 0838 Azithromycin 500 MG DAILY 01/23 1018 AC 01/25 Sodium Chloride 250 ML IV 0934 Ceftriaxone Sodium 2,000 MG DAILY 01/23 1018 AC 01/25 IV 0934 Docusate Sodium 100 MG DAILY NEEDED PRN 01/22 1415 AC PO Guaifenesin 600 MG Q12 01/20 2200 AC 01/25 PO 0933 Heparin Sodium 5,000 UNIT Q8 01/20 2200 AC 01/25 (Porcine) SC 0556 Methylprednisolone 40 MG Q6 01/22 0642 DC 01/24 IV 0553 Morphine Sulfate 2 MG Q6P PRN 01/20 2130 DC IV Multivitamins 1 TAB DAILY 01/21 1000 AC 01/25 Therapeutic PO 0933 Nebivolol 20 MG DAILY 01/21 1000 AC 01/25 PO 0933 Ondansetron HCl 4 MG Q6P PRN 01/20 2200 AC IV Prednisone 5 MG DAILY 02/01 1000 AC PO 02/02 1001 Prednisone 10 MG DAILY 01/30 1000 AC PO 01/31 1001 Prednisone 20 MG DAILY 01/28 1000 AC PO 01/29 1001 Prednisone 30 MG DAILY 01/26 1000 AC PO 01/27 1001 Prednisone 40 MG DAILY 01/24 1041 AC 01/25 PO 01/25 1001 0933 Senna 187 MG AT BEDTIME 01/22 2200 AC 01/22 PO 2155 Vital Signs & I&O Last 24 Hrs of Vitals and I&O: Vital Signs Date Time Temp Pulse Resp B/P B/P Pulse O2 O2 Flow FiO2 Mean Ox Delivery Rate 01/25 933 98.4 70 142/74 01/25 0845 85 Room Air Room Air 01/25 0830 98.4 70 16 142/74 95 Nasal 2.0L Cannula 01/25 0000 Nasal 2.0L Cannula 01/24 2359 98.8 80 20 150/80 97 Nasal 2.0L Cannula 01/240 Nasal 2.0L Cannula 01/24 2050 97.6 78 20 142/72 92 01/24 2005 95 Nasal 2.0L Cannula 01/24 1600 97 Nasal 2.0L Cannula 01/24 1600 97.8 77 20 134/94 97 Nasal 2.0L Cannula 01/24 1036 78 144/70 Intake & Output 01/25 1600 01/25 0800 01/25 0000 Intake Total 130 480 Output Total Balance 130 480 Intake, IV 10 Intake, Oral 120 480 Physical Exam General Appearance: well developed/nourished, no apparent distress, alert, awake Head: atraumatic, normal appearance Eyes: Bilateral: normal appearance, PERRL. Ears, Nose, Throat: normal pharynx Neck: normal inspection, supple Respiratory: decreased breath sounds, increased wheezing bilaterally Cardiovascular: regular rate/rhythm Gastrointestinal: normal bowel sounds, soft, non-tender Impression/Plan Impression/Plan Impression/Plan: 1. Densely consolidated left lower lobe pneumonia. 2. Acute exacerbation of COPD with increased bronchospasm. 3. History of SVT. 4. Hyponatremia. 5. CLAUDETTE. 6. Transaminitis. 7. Group A strep. Recommendations: * Continue ceftriaxone and azithromycin. * Decrease Solu-Medrol to every 12 hours. * Nebs/TRC to continue. * Chest PT with mucomyst - left lower lobe. * Continue high flow oxygen. * Continue Mucinex. * Continue on pain pathway. * DVT prophylaxis at all times. * The patient may require a bronchoscopy if the LLL does not re-expand.
--- NOTE | 2017-01-25 10:06 | PN- Housestaff ---
Subjective Follow-up For: Acute hypoxemic respiratory failure secondary to Extensive left lower lobe pneumonia and ? COPD exacerbation Subjective: Patient was transferred out of ICU last night. This morning she is alert, awake oriented. Hemodynamically stable. She is on 2 L of oxygen via nasal cannula. Feeling improved. Review of Systems Constitutional: Reports: see HPI. Objective Last 24 Hrs of Vital Signs/I&O Vital Signs Date Time Temp Pulse Resp B/P B/P Pulse O2 O2 Flow FiO2 Mean Ox Delivery Rate 01/25 0933 98.4 70 142/74 01/25 0845 85 Room Air Room Air 01/25 0830 98.4 70 16 142/74 95 Nasal 2.0L Cannula 01/25 0000 Nasal 2.0L Cannula 01/24 2359 98.8 80 20 150/80 97 Nasal 2.0L Cannula 01/240 Nasal 2.0L Cannula 01/240 97.6 78 20 142/72 92 01/24 2005 95 Nasal 2.0L Cannula 01/24 1600 97 Nasal 2.0L Cannula 01/24 1600 97.8 77 20 134/94 97 Nasal 2.0L Cannula 01/24 1036 78 144/70 Intake & Output 01/25 1600 01/25 0800 01/25 0000 Intake Total 130 480 Output Total Balance 130 480 Intake, IV 10 Intake, Oral 120 480 Physical Exam General Appearance: Alert, Oriented X3, Cooperative, No Acute Distress HEENT: scleral icterus Neck: Supple Cardiovascular: Regular Rate Lungs: slight wheezing on expiration bilaterally Abdomen: Normal Bowel Sounds, Soft, No Tenderness Neurological: Normal Speech, Strength at 5/5 X4 Ext, Sensation Intact, Cranial Nerves 3-12 NL Extremities: No Edema Current Medications: Current Medications Sig/Nika Start time Last Medication Dose Route Stop Time Status Admin Acetaminophen 650 MG Q6P PRN 01/20 2130 AC PO Acetaminophen 1,000 MG Q6P PRN 01/20 213 DC N/A 1 UNIT IV Acetylcysteine 2 ML BID 01/21 2200 AC 01/25 INH 0838 Albuterol Sulfate 3 ML TID 01/21 1000 AC 01/25 INH 0838 Azithromycin 500 MG DAILY 01/23 1018 AC 01/25 Sodium Chloride 250 ML IV 0934 Ceftriaxone Sodium 2,000 MG DAILY 01/23 1018 AC 01/25 IV 0934 Docusate Sodium 100 MG DAILY NEEDED PRN 01/22 1415 AC PO Guaifenesin 600 MG Q12 01/20 2200 AC 01/25 PO 0933 Heparin Sodium 5,000 UNIT Q8 01/20 2200 AC 01/25 (Porcine) SC 0556 Morphine Sulfate 2 MG Q6P PRN 01/200 DC IV Multivitamins 1 TAB DAILY 01/21 1000 AC 01/25 Therapeutic PO 0933 Nebivolol 20 MG DAILY 01/21 1000 AC 01/25 PO 0933 Ondansetron HCl 4 MG Q6P PRN 01/20 2200 AC IV Prednisone 5 MG DAILY 02/01 1000 AC PO 02/02 1001 Prednisone 10 MG DAILY 01/30 1000 AC PO 01/31 1001 Prednisone 20 MG DAILY 01/28 1000 AC PO 01/29 1001 Prednisone 30 MG DAILY 01/26 1000 AC PO 01/27 1001 Prednisone 40 MG DAILY 01/24 1041 DC 01/25 PO 01/25 1001 0933 Senna 187 MG AT BEDTIME 01/22 2200 AC 01/22 PO 2155 Assessment/Plan Assessment: 66-year-old female with a past medical history of possible COPD, supraventricular tachycardia, former smoker who presented to the ED with chief complaint of shortness of breath, generalized malaise and purulent productive cough. Initially admitted to ICU because of She was stabilized, never intubated in ICU and transferred to telemetry floor. Problem list 1. acute hypoxemic respiratory failure secondary to extensive left lower lobe pneumonia and possible COPD exacerbation 2. Normocytic anemia 3. Hyperbilirubinemia--resolved 4. Transaminitis/coagulopathy----hepatitis panel negative 5. Hyponatremia--- resolved 6. CLAUDETTE--- resolved PLAN * She is still on 2 L of oxygen. Will try to taper it down. * Keep oxygen saturation more than 92% * Continue steroids and antibiotics * Respiratory culture grew yeast and scant growth of staph aureus * Pulm consult appreciated * CTA negative for PE * Recent chest x-ray showed slight interval decrease in size of left-sided loculated pleural effusion with no significant interval change in the left lower lung consolidation * Continue TRC nebs * Subcutaneous heparin for DVT prophylaxis * Regular diet * Pain management pathway * Full code Problem List: 1. Pneumonia Pain Ratin Pain Location: none Pain Goal: Remain pain free Pain Plan: tylenol Tomorrow's Labs & Rationales: CBC DVT/Prophylaxis: pharmacological Consulting Request: Consulting Specialty: Pulmonary Disease Consulting Physician: Manfred Gordon MD Reason for Consult: pneumonia, COPD
--- NOTE | 2017-01-25 11:39 | NUR ---
PT CHECK WITHOUT O2 AND WITH ACTIVITY. PT O2 WENT DOWN TO 85%. pT NOW GETTING RT TX AND PLACED BACK ON 2L O2 NOW 95%. WILL CONTINUE TO MONITOR. RT MADE AWARE AND STATED UNABLE TO TITRATE OFF O2 TODAY.
--- NOTE | 2017-01-25 12:11 | PN- Att Addend ---
Attending Addendum Attending Brief Note Clinically improving , in good spirits, oxygen still on saturating okay, states that got little short of breath with ambulation vital signs are stable, no major changes on physical. Appreciate Dr. Tolentino's input and recommendations, will continue antibiotic therapy oxygen and observation Current Medications Sig/Nika Start time Last Medication Dose Route Stop Time Status Admin Acetaminophen 650 MG Q6P PRN 01/20 2130 AC PO Acetaminophen 1,000 MG Q6P PRN 01/20 2130 DC N/A 1 UNIT IV Acetylcysteine 2 ML BID 01/21 2200 AC 01/25 INH 0838 Albuterol Sulfate 3 ML TID 01/21 1000 AC 01/25 INH 0838 Azithromycin 500 MG DAILY 01/23 1018 AC 01/25 Sodium Chloride 250 ML IV 0934 Ceftriaxone Sodium 2,000 MG DAILY 01/23 1018 AC 01/25 IV 0934 Docusate Sodium 100 MG DAILY NEEDED PRN 01/22 1415 AC PO Guaifenesin 600 MG Q12 01/20 2200 AC 01/25 PO 0933 Heparin Sodium 5,000 UNIT Q8 01/20 2200 AC 01/25 (Porcine) SC 0556 Morphine Sulfate 2 MG Q6P PRN 01/20 2130 DC IV Multivitamins 1 TAB DAILY 01/21 1000 AC 01/25 Therapeutic PO 0933 Nebivolol 20 MG DAILY 01/21 1000 AC 01/25 PO 0933 Ondansetron HCl 4 MG Q6P PRN 01/20 2200 AC IV Prednisone 5 MG DAILY 02/01 1000 AC PO 02/02 1001 Prednisone 10 MG DAILY 01/30 1000 AC PO 01/31 1001 Prednisone 20 MG DAILY 01/28 1000 AC PO 01/29 1001 Prednisone 30 MG DAILY 01/26 1000 AC PO 01/27 1001 Prednisone 40 MG DAILY 01/24 1041 DC 01/25 PO 01/25 1001 0933 Senna 187 MG AT BEDTIME 01/22 2200 AC 01/22 PO 2155 Vital Signs Date Time Temp Pulse Resp B/P B/P Pulse O2 O2 Flow FiO2 Mean Ox Delivery Rate 01/25 09 98.4 70 142/74 01/25 0845 85 Room Air Room Air 01/25 0830 98.4 70 16 142/74 95 Nasal 2.0L Cannula 01/25 0800 Nasal 2.0L Cannula
[2017-01-25 15:58] VITALS: BP 150/86
[2017-01-25 23:51] VITALS: BP 136/90
[2017-01-26 08:10] LABS: ABSOLUTE BASOPHIL COUNT 0 /CUMM (0.0-0.2); ABSOLUTE EOSINOPHIL COUNT 0.1 /CUMM (0.0-0.7); ABSOLUTE GRANULOCYTE CT 12.1 /CUMM (1.4-6.5); ABSOLUTE LYMPH COUNT 2.2 /CUMM (1.2-3.4); ABSOLUTE MONOCYTE COUNT 0.3 /CUMM (0.10-0.60); BASOPHIL % 0.3 % (0.0-2.0); EOSINOPHIL % 0.6 % (0-5); GRANULOCYTE % 82.3 % (42.2-75.2); HEMATOCRIT 30.2 % (37-47); MEAN CORPUSCULAR HGB 28.6 PG (27.0-31.0); MEAN CORPUSCULAR VOLUME 84.2 FL (81.0-99.0); MEAN PLATELET VOLUME 7.7 FL (7.4-10.4); PLATELET COUNT 363 /CUMM (130-400); RBC DISTRIBUTION WIDTH 13.8 % (11.5-14.5); RED BLOOD CELL CT 3.59 /CUMM (4.20-5.40); WHITE BLOOD CELL COUNT 14.8 /CUMM (4.8-10.8)
[2017-01-26 08:53] VITALS: BP 149/74
--- NOTE | 2017-01-26 09:16 | PN- Housestaff ---
RICCARDO SERVIN 01/26/17 0915: Subjective Follow-up For: -Atrial fibrillation Complaints: no complaints Tele-Events Since Last Visit: Normal sinus rhythm, first-degree heart block, heart rate 49. 50 Subjective: She was comfortable this morning. Did not have any complaints. Vitals were stable. She was afebrile overnight. Review of Systems Constitutional: Reports: see HPI. Objective Last 24 Hrs of Vital Signs/I&O Vital Signs Date Time Temp Pulse Resp B/P B/P Pulse O2 O2 Flow FiO2 Mean Ox Delivery Rate 01/26 0853 97.8 78 17 149/74 92 Nasal Cannula 01/26 0825 93 Nasal 1.0L Cannula 01/26 0000 Nasal 1.0L Cannula 01/25 2351 97.9 74 18 136/90 92 Room Air 01/25 1916 95 Nasal 2.0L Cannula 01/25 1600 Nasal 2.0L Cannula 01/25 1558 98.3 74 18 150/86 93 Nasal 1.5L Cannula 01/25 1328 95 Nasal 2.0L Cannula 01/25 0933 98.4 70 142/74 Intake & Output 01/26 1600 01/26 0800 01/26 0000 Intake Total 600 Output Total Balance 600 Intake, Oral 600 Physical Exam General Appearance: No Acute Distress Other Physical Findings: General Exam: AAOx3, No acute distress, Skin: No rashes, no breakdown HEENT: PERRLA, EOMI Neck: Supple, No JVD No cervical lymphadenopathy CVS: Reg Rate, Normal S1,S2, No MGR Resp: Normal air entry, bilateral wheezes(mild) Abdomen: Soft, No tenderness, Normal Bowel Sounds Neuro: Normal Speech, Strength 5/5 b/l x 4 extremities, Sensation intact, CN III -XII NL, Reflexes 2+ Extremities: No cyanosis, pedal edema Current Medications: Current Medications Sig/Nika Start time Last Medication Dose Route Stop Time Status Admin Acetaminophen 650 MG Q6P PRN 01/20 2130 AC PO Acetylcysteine 2 ML BID 01/21 2200 AC 01/25 INH 1915 Albuterol Sulfate 3 ML TID 01/21 1000 AC 01/26 INH 0814 Azithromycin 500 MG DAILY 01/23 1018 AC 01/25 Sodium Chloride 250 ML IV 0934 Ceftriaxone Sodium 2,000 MG DAILY 01/23 1018 AC 01/25 IV 0934 Docusate Sodium 100 MG DAILY NEEDED PRN 01/22 1415 AC PO Guaifenesin 600 MG Q12 01/20 2200 AC 01/25 PO 2138 Heparin Sodium 5,000 UNIT Q8 01/20 2200 AC 01/26 (Porcine) SC 0657 Multivitamins 1 TAB DAILY 01/21 1000 AC 01/25 Therapeutic PO 0933 Nebivolol 20 MG DAILY 01/21 1000 AC 01/25 PO 0933 Ondansetron HCl 4 MG Q6P PRN 01/20 2200 AC IV Prednisone 5 MG DAILY 02/01 1000 AC PO 02/02 1001 Prednisone 10 MG DAILY 01/30 1000 AC PO 01/31 1001 Prednisone 20 MG DAILY 01/28 1000 AC PO 01/29 1001 Prednisone 30 MG DAILY 01/26 1000 AC PO 01/27 1001 Prednisone 40 MG DAILY 01/24 1041 DC 01/25 PO 01/25 1001 0933 Senna 187 MG AT BEDTIME 01/22 2200 AC 01/22 PO 2155 Last 24 Hrs of Lab/Chema Results Last 24 Hrs of Labs/Mics: Laboratory Tests 01/26/17 0645: CBC w Diff Pending, WBC Pending, RBC Pending, Hgb Pending, Hct Pending, MCV Pending, MCH Pending, RDW Pending, Plt Count Pending, MPV Pending, Gran % Pending, Lymphocytes % Pending, Monocytes % Pending, Eosinophils % Pending, Basophils % Pending, Absolute Granulocytes Pending, Absolute Lymphocytes Pending , Absolute Monocytes Pending, Absolute Eosinophils Pending, Absolute Basophils Pending, PUBS MCHC Pending Assessment/Plan Assessment: 66-year-old female with a past medical history of possible COPD, supraventricular tachycardia, former smoker who presented to the ED with chief complaint of shortness of breath, generalized malaise and purulent productive cough. Initially admitted to ICU because of She was stabilized, never intubated in ICU and transferred to telemetry floor. Problem list 1. acute hypoxemic respiratory failure secondary to extensive left lower lobe pneumonia and possible COPD exacerbation 2. Normocytic anemia 3. Hyperbilirubinemia--resolved 4. Transaminitis/coagulopathy----hepatitis panel negative 5. Hyponatremia--- resolved 6. CLAUDETTE--- resolved PLAN * Currently off oxygen, and check ambulatory sats. * Keep oxygen saturation more than 92% * Continue steroids and antibiotics * Respiratory culture grew yeast and scant growth of staph aureus * Discontinued ceftriaxone, and azithormycin. Start cefazolin this pm. * CTA negative for PE * Recent chest x-ray showed slight interval decrease in size of left-sided loculated pleural effusion with no significant interval change in the left lower lung consolidation * Further evaluation could be done as an outpatient. * Continue TRC nebs * Subcutaneous heparin for DVT prophylaxis * Regular diet * Pain management pathway * Full code Problem List: 1. CLAUDETTE (acute kidney injury) 2. History of supraventricular tachycardia 3. Fever 4. Pneumonia Pain Ratin Pain Location: back Pain Goal: Pain 4 or less Pain Plan: tylenol prn Tomorrow's Labs & Rationales: cbc Consulting Request: Consulting Specialty: Pulmonary Disease Consulting Physician: Manfred Gordon MD Reason for Consult: pneumonia, COPD
--- NOTE | 2017-01-26 12:41 | PN- Pulmonary ---
Subjective HPI/Critical Care Issues: This morning she is alert, awake oriented. Hemodynamically stable. She is on room air and feels improved ros neg Objective Current Medications: Current Medications Sig/Nika Start time Last Medication Dose Route Stop Time Status Admin Acetaminophen 650 MG Q6P PRN 01/20 2130 AC PO Acetylcysteine 2 ML BID 01/21 2200 DC 01/25 INH 1915 Albuterol Sulfate 3 ML TID 01/21 1000 AC 01/26 INH 0814 Azithromycin 500 MG DAILY 01/23 1018 AC 01/26 Sodium Chloride 250 ML IV 0943 Ceftriaxone Sodium 2,000 MG DAILY 01/23 1018 AC 01/26 IV 0940 Docusate Sodium 100 MG DAILY NEEDED PRN 01/22 1415 AC PO Guaifenesin 600 MG Q12 01/20 2200 AC 01/26 PO 0935 Heparin Sodium 5,000 UNIT Q8 01/20 2200 AC 01/26 (Porcine) SC 0657 Multivitamins 1 TAB DAILY 01/21 1000 AC 01/26 Therapeutic PO 0935 Nebivolol 20 MG DAILY 01/21 1000 AC 01/26 PO 0935 Ondansetron HCl 4 MG Q6P PRN 01/20 2200 AC IV Prednisone 5 MG DAILY 02/01 1000 AC PO 02/02 1001 Prednisone 10 MG DAILY 01/30 1000 AC PO 01/31 1001 Prednisone 20 MG DAILY 01/28 1000 AC PO 01/29 1001 Prednisone 30 MG DAILY 01/26 1000 AC 01/26 PO 01/27 1001 0935 Senna 187 MG AT BEDTIME 01/22 2200 AC 01/22 PO 2155 Vital Signs & I&O Last 24 Hrs of Vitals and I&O: Vital Signs Date Time Temp Pulse Resp B/P B/P Pulse O2 O2 Flow FiO2 Mean Ox Delivery Rate 01/26 0935 80 146/70 01/26 0853 97.8 78 17 149/74 92 Nasal Cannula 01/26 0825 93 Nasal 1.0L Cannula 01/26 0000 Nasal 1.0L Cannula 01/25 2351 97.9 74 18 136/90 92 Room Air 01/25 1916 95 Nasal 2.0L Cannula 01/25 1600 Nasal 2.0L Cannula 01/25 1558 98.3 74 18 150/86 93 Nasal 1.5L Cannula 01/25 1328 95 Nasal 2.0L Cannula Intake & Output 01/26 1600 01/26 0800 04/29 0000 Intake Total 600 Output Total Balance 600 Intake, Oral 600 Laboratory Tests 01/26 01/25 0645 0500 Chemistry Sodium Cancelled Potassium Cancelled Chloride Cancelled Carbon Dioxide Cancelled Anion Gap Cancelled BUN Cancelled Creatinine Cancelled Glucose Cancelled Calcium Cancelled Phosphorus Cancelled Magnesium Cancelled Total Bilirubin Cancelled AST Cancelled ALT Cancelled Albumin Cancelled Hematology CBC w Diff MAN DIFF ORDERED Cancelled WBC (4.8 - 10.8 /CUMM) 14.8 H Cancelled RBC (4.20 - 5.40 /CUMM) 3.59 L Cancelled Hgb (12.0 - 16.0 G/DL) 10.3 L Cancelled Hct (37 - 47 %) 30.2 L Cancelled MCV (81.0 - 99.0 FL) 84.2 Cancelled MCH (27.0 - 31.0 PG) 28.6 Cancelled RDW (11.5 - 14.5 %) 13.8 Cancelled Plt Count (130 - 400 /CUMM) 363 Cancelled MPV (7.4 - 10.4 FL) 7.7 Cancelled Gran % (42.2 - 75.2 %) 82.3 H Lymphocytes % (20.5 - 51.1 %) 14.8 L Monocytes % (1.7 - 9.3 %) 2.0 Eosinophils % (0 - 5 %) 0.6 Basophils % (0.0 - 2.0 %) 0.3 Absolute Granulocytes (1.4 - 6.5 /CUMM) 12.1 H Segmented Neutrophils (42.2 - 75.2 %) 71 Band Neutrophils (0.0 - 5.0 %) 5 Absolute Lymphocytes (1.2 - 3.4 /CUMM) 2.2 Lymphocytes (20.5 - 51.1 %) 15 L Monocytes (1.7 - 9.3 %) 3 Absolute Monocytes (0.10 - 0.60 /CUMM) 0.3 Absolute Eosinophils (0.0 - 0.7 /CUMM) 0.1 Absolute Basophils (0.0 - 0.2 /CUMM) 0 Metamyelocytes (0.0 - 1.0 %) 4 H Myelocytes (0 - 0 %) 2 H Platelet Estimate (ADEQUATE) VERIFIED BY SMEAR Normocytic RBCs VERIFIED Normochromic RBCs VERIFIED PUBS MCHC (33.0 - 37.0 G/DL) 34.0 Cancelled Impression/Plan Impression/Plan Impression/Plan: Physical Exam General Appearance: well developed/nourished, no apparent distress, alert, awake Head: atraumatic, normal appearance Eyes: Bilateral: normal appearance, PERRL. Ears, Nose, Throat: normal pharynx Neck: normal inspection, supple Respiratory: decreased breath sounds, increased wheezing bilaterally Cardiovascular: regular rate/rhythm Gastrointestinal: normal bowel sounds, soft, non-tender IMPRESSION LLL pna improving but has sig locucated effusions needs to be ruled out PT grew MSSA which is the cause of her PNA Rule out underlying malignancy after rx COPD H/O SVT REC cont abx iv for today and dc ceftriaxone and change to IV cefazolin to cover staph. Can dc azithro after today CT chest with IVC in am to eval pna and left effusion to see if she needs to be tapped WIll follow
--- NOTE | 2017-01-26 13:30 | NUR ---
REPORT GIVEN TO MARCELINO GARDNER ON [address]. PATIENT TO BE TRANSFERED TO ROOM 215-2. PATIENT NOTIFIED OF TRANSFER TO [facility] FLOOR. DR SERVIN NOTIFIED WELL. DISTRIBUTION NOTIFIED OF TRANSFER. AWAITING TRANSPORT.
--- NOTE | 2017-01-26 14:15 | NUR ---
TRANSPORTED VIA STRETCHER. BELONGINGS WITH PATIENT. ALERT ORIENTED X3. ON 1L NC OXYGEN. NO COMPLAINTS. PATIENT TO BE TRANSPORTED TO ROOM 215-2 [facility]MED FLOOR.
[2017-01-26 14:49] VITALS: BP 142/83
[2017-01-26 22:14] VITALS: BP 148/80
[2017-01-27 06:00] VITALS: BP 148/65
--- NOTE | 2017-01-27 08:18 | PN- Housestaff ---
Subjective Follow-up For: Pneumonia COPD Acute Kidney Injury Subjective: Patient seen and examined. She is seen sitting upright in bed resting comfortably maintained on supplement oxygen via nasal cannula. She appears to be in no acute distress. She reports that she went for a walk earlier and was told that her oxygen level "was in the 80's". She admits she can feel when it becomes low and takes a break. She now has a hacking nonproductive cough but otherwise denies any other subjective complaints. Additionally she denies any headache, fever, chills, chest pain, worsening shortness of breath, nausea, vomiting, diarrhea. No overnight events reported. Review of Systems Constitutional: Reports: see HPI. Objective Last 24 Hrs of Vital Signs/I&O Vital Signs Date Time Temp Pulse Resp B/P B/P Pulse O2 O2 Flow FiO2 Mean Ox Delivery Rate 01/27 1417 98.7 72 18 126/70 92 Room Air 01/27 1258 92 Nasal 1.0L Cannula 01/27 1245 89 Room Air 01/27 1011 80 138/50 01/27 0812 91 Room Air Room Air 01/27 0800 Nasal 1.0L Cannula 01/27 0600 98.1 80 18 148/65 92 Room Air 01/27 0000 Room Air 01/26 2214 97.7 82 20 148/80 96 Room Air 01/26 1900 95 Nasal 1.0L Cannula 01/26 1600 Room Air Intake & Output 01/27 1600 01/27 0800 01/27 0000 Intake Total 280 20 500 Output Total 450 Balance 280 -430 500 Intake, IV 30 20 Intake, Oral 250 500 Number 0 Bowel Movements Output, Urine 450 Physical Exam General Appearance: Alert, Oriented X3, Cooperative, No Acute Distress Other Physical Findings: General- well developed, well nourished elderly woman in no acute distress HEENT- NCAT, PERRL, EOMI, anicteric sclera, nasal cannula in place CVS- S1 S2 w/o m/g/r Resp- ESPINOZA/LLL crackles, decreased bilateral air entry GI- soft, nontender, nondistended, bowel sounds intact Neuro- Awake and alert, CN II - XII grossly intact Ext- normal pulses, no cyanosis/clubbing/edema Current Medications: Current Medications Sig/Nika Start time Last Medication Dose Route Stop Time Status Admin Acetaminophen 650 MG Q6P PRN 01/20 2130 AC PO Albuterol Sulfate 3 ML TID 01/21 1000 AC 01/27 INH 1452 Azithromycin 500 MG DAILY 01/23 1018 DC 01/26 Sodium Chloride 250 ML IV 01/26 2300 0943 Cefazolin Sodium 1,000 MG Q8 01/27 0600 AC 01/27 IV 1328 Ceftriaxone Sodium 2,000 MG DAILY 01/23 1018 DC 01/26 IV 01/26 2300 0940 Docusate Sodium 100 MG DAILY NEEDED PRN 01/22 1415 AC PO Guaifenesin 600 MG Q12 01/20 2200 AC 01/27 PO 1012 Heparin Sodium 5,000 UNIT Q8 01/20 2200 AC 01/27 (Porcine) SC 1330 Multivitamins 1 TAB DAILY 01/21 1000 AC 01/27 Therapeutic PO 1012 Nebivolol 20 MG DAILY 01/21 1000 AC 01/27 PO 1011 Ondansetron HCl 4 MG Q6P PRN 01/20 2200 AC IV Prednisone 5 MG DAILY 02/01 1000 AC PO 02/02 1001 Prednisone 10 MG DAILY 01/30 1000 AC PO 01/31 1001 Prednisone 20 MG DAILY 01/28 1000 AC PO 01/29 1001 Prednisone 30 MG DAILY 01/26 1000 DC 01/27 PO 01/27 1001 1012 Senna 187 MG AT BEDTIME 01/22 2200 AC 01/22 PO 2155 Last 24 Hrs of Lab/Chema Results Last 24 Hrs of Labs/Mics: Laboratory Tests 01/27/17 0805: Anion Gap 6, Estimated GFR > 60, BUN/Creatinine Ratio 22.9 Assessment/Plan Assessment: 66-year-old female with a past medical history of possible COPD, supraventricular tachycardia, former smoker who presented to the ED with chief complaint of shortness of breath, generalized malaise and purulent productive cough. Initially admitted to ICU because of She was stabilized, never intubated in ICU and transferred to telemetry floor. Acute Hypoxic Respiratory Failure / Left Lower Lobe Pneumonia Patient with extensive smoking history seen for evaluation of shortness of breath, malaise, and productive cough for almost two weeks prior to admission. Patient was febrile to 102.2 and saturating 83% on room air in the ED. Patient met SIRS/Sepsis criteria with temperative and tachycardia with suspected pulmonary infection. -General Medicine -Supplemental oxygen, goal >92%, taper as tolerated -TRC with albuterol/ipratropium PRN -Cefazolin 1g IV Q8H -Prednisone oral taper -Guaifenesin 600mg PO Q12H -Zofran 4mg IV Q6H PRN Nausea -Follow up cultures & sensitivities Transaminitis- Resolved Acute Kidney Injury- Resolved History SVT-Nebivolol 20mg PO Daily Pain Plan-Acetaminophen Bowel Regimen-Senna/Colace Diet- Regular Diet DVT PPx- Subcutanous heparin Code Status- FULL CODE Problem List: 1. Pneumonia Pain Ratin Pain Location: None Pain Goal: Remain pain free Pain Plan: See assessment Tomorrow's Labs & Rationales: CBC-bandemia Consulting Request: Consulting Specialty: Pulmonary Disease Consulting Physician: Manfred Gordon MD Reason for Consult: pneumonia, COPD
--- NOTE | 2017-01-27 09:00 | NUR ---
LATE ENTRY: PT REPORTS THAT SHE HAS NOT HAD HER INHALERS TODAY. NO INHALERS NOTED ON PT'S EMAR. SPIRIVA, BREO AND VENTOLIN NOTED ON PT'S MED REC. 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 PENDING NEW ORDERS. WILL CONT TO MONITOR.
--- NOTE | 2017-01-27 09:01 | PN- Pulmonary ---
Subjective HPI/Critical Care Issues: Feels much better On room air Fatigued Otherwise unremarkable Objective Current Medications: Current Medications Sig/Nika Start time Last Medication Dose Route Stop Time Status Admin Acetaminophen 650 MG Q6P PRN 01/20 2130 AC PO Acetylcysteine 2 ML BID 01/21 2200 DC 01/25 INH 1915 Albuterol Sulfate 3 ML TID 01/21 1000 AC 01/27 INH 0811 Azithromycin 500 MG DAILY 01/23 1018 DC 01/26 Sodium Chloride 250 ML IV 01/26 230 0943 Cefazolin Sodium 1,000 MG Q8 01/27 0600 AC 01/27 IV 0605 Ceftriaxone Sodium 2,000 MG DAILY 01/23 1018 DC 01/26 IV 01/26 230 0940 Docusate Sodium 100 MG DAILY NEEDED PRN 01/22 1415 AC PO Guaifenesin 600 MG Q12 01/20 2200 AC 01/26 PO 2218 Heparin Sodium 5,000 UNIT Q8 01/20 2200 AC 01/27 (Porcine) SC 0611 Multivitamins 1 TAB DAILY 01/21 1000 AC 01/26 Therapeutic PO 0935 Nebivolol 20 MG DAILY 01/21 1000 AC 01/26 PO 0935 Ondansetron HCl 4 MG Q6P PRN 01/20 2200 AC IV Prednisone 5 MG DAILY 02/01 1000 AC PO 02/02 1001 Prednisone 10 MG DAILY 01/30 1000 AC PO 01/31 1001 Prednisone 20 MG DAILY 01/28 1000 AC PO 01/29 1001 Prednisone 30 MG DAILY 01/26 1000 AC 01/26 PO 01/27 1001 0935 Senna 187 MG AT BEDTIME 01/22 2200 AC 01/22 PO 2155 Vital Signs & I&O Last 24 Hrs of Vitals and I&O: Vital Signs Date Time Temp Pulse Resp B/P B/P Pulse O2 O2 Flow FiO2 Mean Ox Delivery Rate 01/27 0812 91 Room Air Room Air 01/27 06 98.1 80 18 148/65 92 Room Air 01/27 0000 Room Air 01/26 221 97.7 82 20 148/80 96 Room Air 01/26 1900 95 Nasal 1.0L Cannula 01/26 1600 Room Air 01/26 1449 97.7 83 20 142/83 90 Nasal 1.0L Cannula 01/26 0935 80 146/70 Intake & Output 01/27 1600 01/27 0800 01/27 0000 Intake Total 20 500 Output Total 450 Balance -430 500 Intake, IV 20 Intake, Oral 500 Output, Urine 450 Laboratory Tests 01/27 01/26 0805 0645 Chemistry Sodium (137 - 145 mmol/L) 138 Potassium (3.5 - 5.1 mmol/L) 3.9 Chloride (98 - 107 mmol/L) 101 Carbon Dioxide (22 - 30 mmol/L) 31 H Anion Gap (5 - 16) 6 BUN (7 - 17 mg/dL) 16 Creatinine (0.5 - 1.0 mg/dL) 0.7 Estimated GFR (>60 ml/min) > 60 BUN/Creatinine Ratio (7 - 25 %) 22.9 Hematology CBC w Diff MAN DIFF ORDERED WBC (4.8 - 10.8 /CUMM) 14.8 H RBC (4.20 - 5.40 /CUMM) 3.59 L Hgb (12.0 - 16.0 G/DL) 10.3 L Hct (37 - 47 %) 30.2 L MCV (81.0 - 99.0 FL) 84.2 MCH (27.0 - 31.0 PG) 28.6 RDW (11.5 - 14.5 %) 13.8 Plt Count (130 - 400 /CUMM) 363 MPV (7.4 - 10.4 FL) 7.7 Gran % (42.2 - 75.2 %) 82.3 H Lymphocytes % (20.5 - 51.1 %) 14.8 L Monocytes % (1.7 - 9.3 %) 2.0 Eosinophils % (0 - 5 %) 0.6 Basophils % (0.0 - 2.0 %) 0.3 Absolute Granulocytes (1.4 - 6.5 /CUMM) 12.1 H Segmented Neutrophils (42.2 - 75.2 %) 71 Band Neutrophils (0.0 - 5.0 %) 5 Absolute Lymphocytes (1.2 - 3.4 /CUMM) 2.2 Lymphocytes (20.5 - 51.1 %) 15 L Monocytes (1.7 - 9.3 %) 3 Absolute Monocytes (0.10 - 0.60 /CUMM) 0.3 Absolute Eosinophils (0.0 - 0.7 /CUMM) 0.1 Absolute Basophils (0.0 - 0.2 /CUMM) 0 Metamyelocytes (0.0 - 1.0 %) 4 H Myelocytes (0 - 0 %) 2 H Platelet Estimate (ADEQUATE) VERIFIED BY SMEAR Normocytic RBCs VERIFIED Normochromic RBCs VERIFIED PUBS MCHC (33.0 - 37.0 G/DL) 34.0 Impression/Plan Impression/Plan Impression/Plan: Physical Exam General Appearance: well developed/nourished, no apparent distress, alert, awake Head: atraumatic, normal appearance Eyes: Bilateral: normal appearance, PERRL. Ears, Nose, Throat: normal pharynx Neck: normal inspection, supple Respiratory: decreased breath sounds, increased wheezing bilaterally Cardiovascular: regular rate/rhythm Gastrointestinal: normal bowel sounds, soft, non-tender IMPRESSION LLL pna improving but has sig locucated effusions needs to be ruled out PT grew MSSA which is the cause of her PNA Rule out underlying malignancy after rx COPD H/O SVT, resolved Transaminitis improved Hyponatremia resolved Acute renal failure resolved REC IV cefazolin to cover staph. Can dc azithro after today CT chest with IVC today to eval pna and left effusion to see if she needs to be tapped WIll follow, is stable can be switched to by mouth antibiotics and discharged tomorrow
--- NOTE | 2017-01-27 11:35 | CT SCAN REPORT ---
EXAMINATION: CT CHEST WITH CONTRAST CLINICAL INFORMATION: Shortness of breath and cough; question of pleural effusion or pneumonia. COMPARISON: Prior chest radiographs, most recently 01/24/2017; CTA thorax dated 01/20/2017. TECHNIQUE: Multidetector volumetric CT imaging of the chest was obtained after the administration of 55 mL of Optiray 320 intravenous contrast without immediate adverse reactions. Axial MIP volume rendering provided. Sagittal and coronal reformatted images were obtained. 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 There is left base pleural and parenchymal disease. LUNGS: There is a small left pleural effusion, with posterior upper and lower lung field components. Again, this is likely loculated. There is marked left lower lobe airspace disease with air bronchograms, primarily involving the apical, lateral and posterior basal segments, with relative sparing of the anteromedial basal segment. The appearance is slightly improved from 01/20/2017. The right lung field is relatively clear. There are mild to moderate centrilobular emphysematous changes. There is mild right apical scarring. Laterally within the right upper lobe (4:116), there is a 4 mm noncalcified nodule, stable from 01/20/2017 (2:91). In the posterior basal segment of the right lower lobe (4:339), there is a 3 mm noncalcified nodule, also unchanged from 01/20/2017 (2:282). There is no significant bleb or bullous formation. The central airways appear patent. MEDIASTINUM: The thyroid gland is unremarkable. There are multiple confluent mediastinal lymph nodes, principally within the AP window and subcarinal regions. Shotty bilateral hilar lymph nodes are noted. There is no thoracic aortic aneurysm or dissection. There is mild atherosclerotic change of the great vessel origins and thoracic aorta. PLEURA: There is a small pleural effusion, as above. AXILLA: No lymphadenopathy. UPPER ABDOMEN: Unremarkable. OSSEOUS STRUCTURES: There is moderate thoracic spondylosis. No acute or aggressive osseous abnormality is seen. IMPRESSION: Findings are again consistent with left lower lobe consolidation, with some interim improvement in aeration in the anteromedial basal segment. There is an adjacent small left pleural effusion with probable loculation. Stable mediastinal adenopathy is seen. Findings are again consistent with pneumonia, parapneumonic effusion and reactive lymphadenopathy. No underlying obstructive process is seen. Recommend continued imaging to clearance.
[2017-01-27 14:17] VITALS: BP 126/70
[2017-01-27] MEDS ORDERED: SPIRIVA18 MCG INH (16:51)
[2017-01-27] MEDS ORDERED: VENTOLIN HFA18 GM INH (16:52)
[2017-01-27 22:15] VITALS: BP 136/76
[2017-01-28 06:51] VITALS: BP 142/70
[2017-01-28 08:19] LABS: ABSOLUTE BASOPHIL COUNT 0 /CUMM (0.0-0.2); ABSOLUTE EOSINOPHIL COUNT 0.2 /CUMM (0.0-0.7); ABSOLUTE GRANULOCYTE CT 8.6 /CUMM (1.4-6.5); ABSOLUTE LYMPH COUNT 1.9 /CUMM (1.2-3.4); ABSOLUTE MONOCYTE COUNT 0.3 /CUMM (0.10-0.60); BASOPHIL % 0.2 % (0.0-2.0); EOSINOPHIL % 1.4 % (0-5); GRANULOCYTE % 77.9 % (42.2-75.2); HEMATOCRIT 30.3 % (37-47); MEAN CORPUSCULAR HGB 28.8 PG (27.0-31.0); MEAN CORPUSCULAR HGB CONC 33.9 G/DL (33.0-37.0); MEAN CORPUSCULAR VOLUME 84.8 FL (81.0-99.0); MEAN PLATELET VOLUME 7.9 FL (7.4-10.4); PLATELET COUNT 284 /CUMM (130-400); RBC DISTRIBUTION WIDTH 13.8 % (11.5-14.5); RED BLOOD CELL CT 3.57 /CUMM (4.20-5.40); WHITE BLOOD CELL COUNT 11.1 /CUMM (4.8-10.8)
--- NOTE | 2017-01-28 09:13 | PN- Pulmonary ---
RENEE ELDER 01/28/17 0913: Subjective HPI/Critical Care Issues: Patient was seen and examined today. Patient alert, awake, oriented. Patient stated that her breathing status getting better with time. Patient still complaining of feeling tired and weak. Otherwise she denies any fever, chills, chest pain. She is in room air with oxygen saturation more than 92%, afebrile. Objective Current Medications: Current Medications Sig/Nika Start time Last Medication Dose Route Stop Time Status Admin Acetaminophen 650 MG Q6P PRN 01/20 2130 AC PO Albuterol Sulfate 2 PUF Q4-6 PRN PRN 01/27 1700 AC INH Albuterol Sulfate 3 ML TID 01/21 1000 AC 01/27 INH 1702 Cefazolin Sodium 1,000 MG Q8 01/27 0600 AC 01/28 IV 0615 Docusate Sodium 100 MG DAILY NEEDED PRN 01/22 1415 AC PO Guaifenesin 600 MG Q12 01/20 2200 AC 01/28 PO 0914 Heparin Sodium 5,000 UNIT Q8 01/20 2200 AC 01/28 (Porcine) SC 0614 Multivitamins 1 TAB DAILY 01/21 1000 AC 01/28 Therapeutic PO 0914 Nebivolol 20 MG DAILY 01/21 1000 AC 01/28 PO 0914 Ondansetron HCl 4 MG Q6P PRN 01/20 2200 AC IV Prednisone 5 MG DAILY 02/01 1000 AC PO 02/02 1001 Prednisone 10 MG DAILY 01/30 1000 AC PO 01/31 1001 Prednisone 20 MG DAILY 01/28 1000 AC 01/28 PO 01/29 1001 0914 Prednisone 30 MG DAILY 01/26 1000 DC 01/27 PO 01/27 1001 1012 Senna 187 MG AT BEDTIME 01/22 2200 AC 01/22 PO 2155 Tiotropium [place] 1 PUF DAILY 01/27 1652 AC 01/28 INH 0914 Vital Signs & I&O Last 24 Hrs of Vitals and I&O: Vital Signs Date Time Temp Pulse Resp B/P B/P Pulse O2 O2 Flow FiO2 Mean Ox Delivery Rate 01/28 914 71 140/68 01/28 0651 97.8 71 20 142/70 92 01/27 2215 97.6 73 20 136/76 94 Room Air 01/27 1706 93 Room Air Room Air 01/27 1417 98.7 72 18 126/70 92 Room Air 01/27 1258 92 Nasal 1.0L Cannula 01/27 1245 89 Room Air 01/27 1011 80 138/50 Intake & Output 01/28 1600 01/28 0800 01/28 0000 Intake Total 120 120 Output Total Balance 120 120 Intake, Oral 120 120 Exam General Appearance: well developed/nourished, alert, awake, comfortable Head: atraumatic, normal appearance Neck: supple Respiratory: chest non-tender, left side fine crackles, no wheezing Cardiovascular: regular rate/rhythm Abdomen: normal bowel sounds, soft, non-tender, no organomegaly Extremities: normal inspection, no edema Skin: intact, normal color Results Last 24 Hrs of Lab Results: Laboratory Tests 01/28/17 0730: CBC w Diff NO MAN DIFF REQ, RBC 3.57 L, MCV 84.8, MCH 28.8, RDW 13.8, MPV 7.9, Gran % 77.9 H, Lymphocytes % 17.4 L, Monocytes % 3.1, Eosinophils % 1.4, Basophils % 0.2, Absolute Granulocytes 8.6 H, Absolute Lymphocytes 1.9, Absolute Monocytes 0.3, Absolute Eosinophils 0.2, Absolute Basophils 0, PUBS MCHC 33.[address] Scan Findings: EXAM TYPE: CAT - CT CHEST W IV CONTRAST EXAMINATION: CT CHEST WITH CONTRAST CLINICAL INFORMATION: Shortness of breath and cough; question of pleural effusion or pneumonia. COMPARISON: Prior chest radiographs, most recently 01/24/2017; CTA thorax dated 01/20/2017. TECHNIQUE: Multidetector volumetric CT imaging of the chest was obtained after the administration of 55 mL of Optiray 320 intravenous contrast without immediate adverse reactions. Axial MIP volume rendering provided. Sagittal and coronal reformatted images were obtained. 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 There is left base pleural and parenchymal disease. LUNGS: There is a small left pleural effusion, with posterior upper and lower lung field components. Again, this is likely loculated. There is marked left lower lobe airspace disease with air bronchograms, primarily involving the apical, lateral and posterior basal segments, with relative sparing of the anteromedial basal segment. The appearance is slightly improved from 01/20/2017. The right lung field is relatively clear. There are mild to moderate centrilobular emphysematous changes. There is mild right apical scarring. Laterally within the right upper lobe (4:116), there is a 4 mm noncalcified nodule, stable from 01/20/2017 (2:91). In the posterior basal segment of the right lower lobe (4:339), there is a 3 mm noncalcified nodule, also unchanged from 01/20/2017 (2:282). There is no significant bleb or bullous formation. The central airways appear patent. MEDIASTINUM: The thyroid gland is unremarkable. There are multiple confluent mediastinal lymph nodes, principally within the AP window and subcarinal regions. Shotty bilateral hilar lymph nodes are noted. There is no thoracic aortic aneurysm or dissection. There is mild atherosclerotic change of the great vessel origins and thoracic aorta. PLEURA: There is a small pleural effusion, as above. AXILLA: No lymphadenopathy. UPPER ABDOMEN: Unremarkable. OSSEOUS STRUCTURES: There is moderate thoracic spondylosis. No acute or aggressive osseous abnormality is seen. IMPRESSION: Findings are again consistent with left lower lobe consolidation, with some interim improvement in aeration in the anteromedial basal segment. There is an adjacent small left pleural effusion with probable loculation. Stable mediastinal adenopathy is seen. Findings are again consistent with pneumonia, parapneumonic effusion and reactive lymphadenopathy. No underlying obstructive process is seen. Recommend continued imaging to clearance. Impression/Plan Impression/Plan Impression/Plan: Impression/Plan: 1. Densely consolidated left lower lobe pneumonia. 2. Acute exacerbation of COPD with increased bronchospasm. 3. History of SVT. 4. Hyponatremia. 5. CLAUDETTE. 6. Transaminitis. 7. Group A strep. Recommendations: * Discontinue IV cefazolin and start the patient on by mouth Augmentin * Continue prednisone taper. * Repeat chest x-ray today. * Encourage ambulation and increase activity as torleated. * Continue Nebs/TRC. * Chest PT with mucomyst - left lower lobe. * Continue Mucinex. * Continue on pain pathway. * DVT prophylaxis at all times. * Patient will need follow-up as an outpatient and she will need to repeat CT chest. * The patient may require a bronchoscopy if the LLL does not re-expand. RYLIE SINGH,Manfred PEREZ 01/28/17 1045: Impression/Plan Impression/Plan Recommendations: I have personally seen and examined the patient and agree with the resident's assessment as detailed above. I have discussed the plan of care with the patient at length. I will follow-up the chest x-ray findings. The patient will require ongoing out patient follow-up to ensure complete resolution of the pneumonia. She is agreeable to follow-up after discharge.
--- NOTE | 2017-01-28 10:18 | RADIOLOGY REPORT ---
EXAMINATION:\H\ \N\XR CHEST CLINICAL INFORMATION: MSSA pneumonia. Follow-up. COMPARISON: 01/24/[address] dated 01/27/2017 TECHNIQUE: Frontal view of the chest was obtained. FINDINGS: Left lower lobe consolidation is unchanged from prior, silhouetting the left hemidiaphragm. Small effusion is also likely present as seen on the prior CT. No left upper lobe airspace disease. Right lung appears clear. Cardiac and mediastinal contours are unchanged. Pulmonary vasculature is normal. No acute osseous abnormalities. IMPRESSION: Unchanged left lower lobe pneumonia and small left effusion.
[2017-01-28] MEDS ORDERED: PREDNISONE10 M2 PO (11:04)
[2017-01-28] MEDS ORDERED: GUAIFENESIN ER600 MG PO (11:04)
[2017-01-28] MEDS ORDERED: AMOX-CLAV 875-1 EACH PO (11:04)
--- NOTE | 2017-01-28 11:07 | PN- Housestaff ---
Subjective Follow-up For: MSSA pneumonia Subjective: This morning she is alert, awake and oriented. She offers no complaints. She is feeling improved. On room air oxygen saturation 93%. Review of Systems Constitutional: Reports: see HPI. Objective Last 24 Hrs of Vital Signs/I&O Vital Signs Date Time Temp Pulse Resp B/P B/P Pulse O2 O2 Flow FiO2 Mean Ox Delivery Rate 01/28 1045 93 Room Air Room Air 01/28 0914 71 140/68 01/28 0651 97.8 71 20 142/70 92 01/27 2215 97.6 73 20 136/76 94 Room Air 01/27 1706 93 Room Air Room Air 01/27 1417 98.7 72 18 126/70 92 Room Air 01/27 1258 92 Nasal 1.0L Cannula 01/27 1245 89 Room Air Intake & Output 01/28 1600 01/28 0800 01/28 0000 Intake Total 120 120 Output Total Balance 120 120 Intake, Oral 120 120 Physical Exam General Appearance: Alert, Oriented X3, Cooperative, No Acute Distress Cardiovascular: Regular Rate Lungs: diffuse crackles B/L Abdomen: Normal Bowel Sounds, Soft, No Tenderness Neurological: Normal Speech, Strength at 5/5 X4 Ext, Sensation Intact, Cranial Nerves 3-12 NL Extremities: No Edema Current Medications: Current Medications Sig/Nika Start time Last Medication Dose Route Stop Time Status Admin Acetaminophen 650 MG Q6P PRN 01/200 AC PO Albuterol Sulfate 3 ML BID 01/28 2200 AC 01/28 INH 1040 Albuterol Sulfate 2 PUF Q4-6 PRN PRN 01/27 1700 AC INH Albuterol Sulfate 3 ML TID 01/21 1000 DC 01/27 INH 1702 Amoxicillin/ 875 MG Q12 01/28 2200 AC Clavulanate Potassium PO Cefazolin Sodium 1,000 MG Q8 01/27 0600 DC 01/28 IV 0615 Docusate Sodium 100 MG DAILY NEEDED PRN 01/22 1415 AC PO Guaifenesin 600 MG Q12 01/20 2200 AC 01/28 PO 0914 Heparin Sodium 5,000 UNIT Q8 01/20 2200 AC 01/28 (Porcine) SC 0614 Multivitamins 1 TAB DAILY 01/21 1000 AC 01/28 Therapeutic PO 0914 Nebivolol 20 MG DAILY 01/21 1000 AC 01/28 PO 0914 Ondansetron HCl 4 MG Q6P PRN 01/20 2200 AC IV Prednisone 5 MG DAILY 02/01 1000 AC PO 02/02 1001 Prednisone 10 MG DAILY 01/30 1000 AC PO 01/31 1001 Prednisone 20 MG DAILY 01/28 1000 AC 01/28 PO 01/29 1001 0914 Senna 187 MG AT BEDTIME 01/22 2200 AC 01/22 PO 2155 Tiotropium [place] 1 PUF DAILY 01/27 1652 AC 01/28 INH 0914 Last 24 Hrs of Lab/[place] Results Last 24 Hrs of Labs/Mics: Laboratory Tests 01/28/17729: CBC w Diff NO MAN DIFF REQ, RBC 3.57 L, MCV 84.8, MCH 28.8, RDW 13.8, MPV 7.9, Gran % 77.9 H, Lymphocytes % 17.4 L, Monocytes % 3.1, Eosinophils % 1.4, Basophils % 0.2, Absolute Granulocytes 8.6 H, Absolute Lymphocytes 1.9, Absolute Monocytes 0.3, Absolute Eosinophils 0.2, Absolute Basophils 0, PUBS MCHC 33.9 Assessment/Plan Assessment: 66-year-old female with a past medical history of possible COPD, supraventricular tachycardia, former smoker has been admitted on general medicine floor for: 1. MSSA Pneumonia 2. Possible Parapneumonic effusion and reactive lymphadenopathy. ? Lung Mass 3. Desaturation on ambulation down to 88% Monitor vitals closely. Continue TRC nebs. We will switch IV antibiotics to by mouth Augmentin today. Continue prednisone taper. Pulm consult appreciated. Patient needs to go to home with oxygen. Will discuss with patient. Continue other home medications. Subcutaneous heparin for DVT prophylaxis. Pain management pathway. Patient is full code. Outpatient follow-up with Dr. Gordon. Problem List: 1. Pneumonia Pain Ratin Pain Location: none Pain Goal: Remain pain free Pain Plan: tylenol Tomorrow's Labs & Rationales: none DVT/Prophylaxis: pharmacological Consulting Request: Consulting Specialty: Pulmonary Disease Consulting Physician: Manfred Gordon MD Reason for Consult: pneumonia, COPD Consulting Request: Consulting Specialty: Pulmonary Disease Consulting Physician: Manfred Gordon MD Reason for Consult: pneumonia, COPD
--- NOTE | 2017-01-28 11:07 | Patient Discharge Instructions ---
Discharge Instructions General Discharge Information You were seen/treated for: MSSA pneumonia Special Instructions: 1. Please follow-up with your primary care provider next week after discharge 2. Please follow-up with low vision therapist, Dr. Gordon next week after discharge Diet Continue normal diet: Yes Activity Full Activity/No Limits: Yes Acute Coronary Syndrome Inclusion Criteria At DC or during hospital stay patient has or had the following: ACS DIAGNOSIS No Discharge Core Measures Meds if any: Prescribed or Continued at Discharge Meds if any: NOT Prescribed or Continued at Discharge Congestive Heart Failure Inclusion Criteria At DC or during hospital stay patient has or had the following: CHF DIAGNOSIS No Discharge Core Measures Meds if any: Prescribed or Continued at Discharge Meds if any: NOT Prescribed or Continued at Discharge Cerebrovascular accident Inclusion Criteria At DC or during hospital stay patient has or had the following: CVA/TIA Diagnosis No Discharge Core Measures Meds if any: Prescribed or Continued at Discharge Meds if any: NOT Prescribed or Continued at Discharge Venous thromboembolism Inclusion Criteria VTE Diagnosis No VTE Type NONE VTE Confirmed by (Test) NONE Discharge Core Measures - Per Current guidelines, there needs to be overlap - treatment for the first 5 days of Warfarin therapy. - If discharged on Warfarin prior to 5 days of - overlap therapy, the patient will need to be - assessed for post discharge needs including - *Post discharge parental anticoagulation - *Warfarin and/or parental anticoagulation education - *Follow up date to check INR post discharge At least 5 days overlap therapy as Inpatient No Meds if any: Prescribed or Continued at Discharge Note: Overlap Therapy is Warfarin and Anticoagulant Meds if any: NOT Prescribed or Continued at Discharge
--- NOTE | 2017-01-28 11:11 | PN- Att Addend ---
Attending Addendum Attending Brief Note Patient looking and feeling better off oxygen is a degenerating well. The patient is a febrile. On physical no major changes CAT scan of the chest yesterday shows slight increased aeration of the infiltrate patient will be going home on by mouth antibiotics and respiratory medications and follow-up with myself and Dr. Gordon lab chest x-rays and/or CT scans as an outpatient clearing of the infiltrate treat accordingly. Intake & Output 01/28 Intake Total 120 120 300 500 835 600 Output Total 450 Balance 120 120 -150 500 835 600 Intake, IV 50 275 Intake, Oral 120 120 250 500 560 600 Number 0 1 Bowel Movements Output, Urine 450 Laboratory Tests 01/28/17 0730: CBC w Diff NO MAN DIFF REQ, RBC 3.57 L, MCV 84.8, MCH 28.8, RDW 13.8, MPV 7.9, Gran % 77.9 H, Lymphocytes % 17.4 L, Monocytes % 3.1, Eosinophils % 1.4, Basophils % 0.2, Absolute Granulocytes 8.6 H, Absolute Lymphocytes 1.9, Absolute Monocytes 0.3, Absolute Eosinophils 0.2, Absolute Basophils 0, PUBS MCHC 33.9 01/27/17 0805: Anion Gap 6, Estimated GFR > 60, BUN/Creatinine Ratio 22.9 01/26/17 0645: CBC w Diff MAN DIFF ORDERED, RBC 3.59 L, MCV 84.2, MCH 28.6, RDW 13.8, MPV 7.7, Gran % 82.3 H, Lymphocytes % 14.8 L, Monocytes % 2.0, Eosinophils % 0.6, Basophils % 0.3, Absolute Granulocytes 12.1 H, Segmented Neutrophils 71, Band Neutrophils 5, Absolute Lymphocytes 2.2, Lymphocytes 15 L, Monocytes 3, Absolute Monocytes 0.3, Absolute Eosinophils 0.1, Absolute Basophils 0, Metamyelocytes 4 H, Myelocytes 2 H, Platelet Estimate VERIFIED BY SMEAR, Normocytic RBCs VERIFIED, Normochromic RBCs VERIFIED, PUBS MCHC 34.0
--- NOTE | 2017-01-28 12:00 | NUR ---
NURSING NOTE: PT AMBULATED IN HALLWAY ON RA AND O2 SAT REMAINED 89% - 90%. PT DENIES FEELINS SOB.
--- NOTE | 2017-01-28 13:00 | NUR ---
NURSING NOTE: PT 02 SAT ON RA ON REST 94%, ON AMBULATION ON RA 88%. WHEN AMBULATED ON 2L NC PT O2 SAT 92% AND ON REST ON 2L NC 96%.
[2017-01-28 14:52] VITALS: BP 122/70
[2017-01-28] MEDS ORDERED: SPIRIVA18 MCG INH (14:58)
[2017-01-28] MEDS ORDERED: VENTOLIN HFA18 GM INH (14:58)
--- NOTE | 2017-02-03 16:44 | Discharge Summary ---
Visit Information Visit Dates Admission Date: 01/20/17 Discharge Date: 01/28/17 Hospital Course Course Attending Physician: MINESH OVIEDO MD Primary Care Physician: MINESH OVIEDO MD Consulting Request: Consulting Specialty: Pulmonary Disease Consulting Physician: Manfred Gordon MD Reason for Consult: pneumonia, COPD Hospital Course: 66-year-old white female who started with flulike symptoms not getting better continued with a fever of breath as to the ER febrile with a high white count with a left lung consolidation and short of breath even at rest patient was admitted to the intensive care unit was seen by Dr. Gordon was diagnosed of having acute hypoxemic respiratory failure severe pneumonia all his sepsis from the pneumonia and a COPD exacerbation. Also had some acute kidney sufficiency. Patient was started on IV antibiotic respiratory therapy with slow improvement of the symptoms. Sputum grew Out MSSA. Antibiotics were adjusted. Her labs improved her clinical in addition improved the day before discharge she was able to go on room air. Before discharge she ambulated and her O2 sat dropped a little bit so she was sent home on oxygen, to finish her antibiotics. To follow with Dr. Tolentino and myself Complications: None Allergies: Coded Allergies: adhesive tape (OPEN SORES - PAPER TAPE IS OKAY 01/20/17) Significant Procedures: SERVICE DATE: 01/20/17 EXAM TYPE: RAD - XRY-CHEST XRAY, PA AND LATERAL EXAMINATION: XR CHEST CLINICAL INFORMATION: Cough, hypoxia, pneumonia COMPARISON: 02/23/2014 TECHNIQUE: 2 views of the chest were obtained. FINDINGS: New from the prior study, there is left base consolidation and hazy left midlung and left base opacity, greatest posteriorly on the lateral view. The left costophrenic angle is not fully obscured. There may be a small left pleural effusion. Right lung and pleural spaces are clear. No pulmonary edema. Normal heart size. Regional skeleton intact. IMPRESSION: Left base consolidation consistent with pneumonia. Small left pleural effusion may be present as well. These findings are new since the prior study January 2014. SERVICE DATE: 01/20/17 EXAM TYPE: CAT - CTA CHEST-PULMONARY EMBOLISM EXAMINATION: CT ANGIOGRAM OF THE CHEST WITH AND WITHOUT CONTRAST (CT PULMONARY ANGIOGRAM FOR PE) CLINICAL INFORMATION: Shortness of breath. Hypoxia to 80 percent COMPARISON: Chest x-ray earlier today and 02/23/2014 TECHNIQUE: Prior to contrast administration, noncontrast localization images were obtained. Subsequently, multidetector volumetric imaging was performed from the thoracic inlet to below the diaphragms following the administration of 100 mL Optiray 320 intravenous contrast. No contrast reaction reported. Sagittal, coronal, and MIP oblique sagittal reformatted images were obtained on the CT workstation, uploaded to PACS, and reviewed. Total exam dose-length product 407 mGy-cm. FINDINGS: QUALITY OF STUDY/CONTRAST BOLUS: Satisfactory PULMONARY ARTERIES: No central or segmental pulmonary emboli. THORACIC AORTA: No aneurysm or dissection. LUNG: As seen on the chest radiograph, there is extensive left lung consolidation predominantly involving the left lower lobe but involving the left upper lobe as well, particularly in the lingula. Multiple air bronchograms are present. The major airways are intact. No debris is seen within the airways. There is moderate emphysema in the right lung and residual aerated left lung. PLEURA: Small amount of left pleural fluid is present, likely loculated with a loculated collection posteriorly at the lung apex as well as loculated fluid seen anteriorly and laterally in the left pleural space at the base. MEDIASTINUM: Multifocal mediastinal lymphadenopathy is seen with precarinal, prevascular, subcarinal, AP window, and bilateral hilar lymph nodes. The largest is a subcarinal lymph node measuring 1.1 x 2 cm. There is a 2.2 x 1.3 cm AP window lymph node. The pulmonary artery measures 3 cm suggesting pulmonary arterial hypertension. Normal heart size. Trace pericardial fluid. CHEST WALL/AXILLA: No axillary or internal mammary lymphadenopathy. OSSEOUS STRUCTURES: Multilevel degenerative changes of the thoracic spine with no acute or suspicious osseous abnormality. UPPER ABDOMEN: No adrenal mass. No reflux of contrast into the hepatic veins to suggest elevated right heart pressures. IMPRESSION: No pulmonary embolus seen. Extensive left lung consolidation with near complete involvement of the left lower lobe as well as involvement of the left upper lobe particularly in the lingula. There are air bronchograms but the central airways are patent. Small amount of left pleural fluid is present, likely loculated with loculations posteriorly at the left lung apex as well as laterally and anteriorly at the left lung base. Also seen is mediastinal lymphadenopathy most notable for enlarged AP window and subcarinal lymph nodes. Overall, the appearance is most consistent with extensive pneumonia, reactive lymphadenopathy, and a parapneumonic effusion. Alternatively, a malignancy could be considered, although no central obstructing mass is seen. Recommend pulmonary consultation to consider bronchoscopy and guide further management. SERVICE DATE: 01/21/17 EXAM TYPE: US - US-LIMITED ABDOMEN EXAMINATION: US ABDOMEN LIMITED CLINICAL INFORMATION: Hyperbilirubinemia. Evaluate for cholelithiasis and obstructed common duct.. COMPARISON: None TECHNIQUE: Real-time imaging of the right upper quadrant abdominal viscera. FINDINGS: PANCREAS: Normal. LIVER: Normal. The liver demonstrates normal size, contour and echogenicity. No focal lesion or intrahepatic biliary duct dilatation. GALLBLADDER: Normal. The gallbladder is physiologically distended without evidence of stones, sludge, polyps, wall thickening or pericholecystic fluid. COMMON BILE DUCT: Normal in caliber measuring 0.4 cm in diameter. RIGHT KIDNEY: Normal. No hydronephrosis. No renal calculi or focal parenchymal lesions. The kidney measures 11.3 cm in maximum dimension. FREE FLUID: None. IMPRESSION: 1. Liver is sonographically normal. 2. Gallbladder is normal; no evidence of cholelithiasis or biliary tract obstruction. SERVICE DATE: 01/22/17 EXAM TYPE: RAD - XRY-PORTABLE CHEST XRAY EXAMINATION: XR PORTABLE CHEST CLINICAL INFORMATION: Previous x-ray showed small pleural effusions as well. Evaluate for consolidation and worsening atelectasis. COMPARISON: Chest x-ray dated 01/20/2017 and 02/23/2014. CTA of the chest dated 01/20/2017. TECHNIQUE: Portable AP semierect view of the chest was obtained. FINDINGS: The cardiac silhouette and left hemidiaphragm are again obscured by a small left-sided pleural effusion, which is partially loculated along the lateral mid left chest wall and by dense consolidation and volume loss in the left lower lobe. When compared to the prior chest x-ray, no significant interval change or improvement in aeration is seen. The right lung remains fully expanded and there is only minimal linear subsegmental atelectasis seen medially in the right lung base. No pneumothorax or evidence of pulmonary edema is seen. Bony structures are grossly unremarkable. SERVICE DATE: 01/24/17 EXAM TYPE: RAD - XRY-PORTABLE CHEST XRAY EXAMINATION: XR PORTABLE CHEST CLINICAL INFORMATION: Evaluate for consolidation and worsening atelectasis. Previous x-ray showed small pleural effusions as well. COMPARISON: Chest x-ray dated 01/22/2017, 01/20/2017 and 02/23/2014. TECHNIQUE: Portable AP semierect view of the chest was obtained. FINDINGS: The cardiomediastinal silhouette is within normal limits in size and again partially obscured by a dense left lung base opacity, shown on prior CT scan to represent consolidation and small loculated left-sided pleural effusion. Compared to the prior chest x-ray from 01/22/2017, the amount of pleural fluid has diminished with no significant change in left basilar consolidation. The right lung is fully expanded and remains clear. No pneumothorax is seen. Bony structures are unremarkable. IMPRESSION: Interval slight decrease in size of left-sided loculated pleural effusion with no significant interval change in the left lower lung consolidation. IMPRESSION: No significant change in collapse and consolidation of the left lower lobe and associated small partially loculated pleural effusion. SERVICE DATE: 01/27/17 EXAM TYPE: CAT - CT CHEST W IV CONTRAST EXAMINATION: CT CHEST WITH CONTRAST CLINICAL INFORMATION: Shortness of breath and cough; question of pleural effusion or pneumonia. COMPARISON: Prior chest radiographs, most recently 01/24/2017; CTA thorax dated 01/20/2017. TECHNIQUE: Multidetector volumetric CT imaging of the chest was obtained after the administration of 55 mL of Optiray 320 intravenous contrast without immediate adverse reactions. Axial MIP volume rendering provided. Sagittal and coronal reformatted images were obtained. DLP: 234.87 mGy-cm FINDINGS: HULL GRINDER: The right lung field appears clear. There is left base pleural and parenchymal disease. LUNGS: There is a small left pleural effusion, with posterior upper and lower lung field components. Again, this is likely loculated. There is marked left lower lobe airspace disease with air bronchograms, primarily involving the apical, lateral and posterior basal segments, with relative sparing of the anteromedial basal segment. The appearance is slightly improved from 01/20/2017. The right lung field is relatively clear. There are mild to moderate centrilobular emphysematous changes. There is mild right apical scarring. Laterally within the right upper lobe (4:116), there is a 4 mm noncalcified nodule, stable from 01/20/2017 (2:91). In the posterior basal segment of the right lower lobe (4:339), there is a 3 mm noncalcified nodule, also unchanged from 01/20/2017 (2:282). There is no significant bleb or bullous formation. The central airways appear patent. MEDIASTINUM: The thyroid gland is unremarkable. There are multiple confluent mediastinal lymph nodes, principally within the AP window and subcarinal regions. Shotty bilateral hilar lymph nodes are noted. There is no thoracic aortic aneurysm or dissection. There is mild atherosclerotic change of the great vessel origins and thoracic aorta. PLEURA: There is a small pleural effusion, as above. AXILLA: No lymphadenopathy. UPPER ABDOMEN: Unremarkable. OSSEOUS STRUCTURES: There is moderate thoracic spondylosis. No acute or aggressive osseous abnormality is seen. IMPRESSION: Findings are again consistent with left lower lobe consolidation, with some interim improvement in aeration in the anteromedial basal segment. There is an adjacent small left pleural effusion with probable loculation. Stable mediastinal adenopathy is seen. Findings are again consistent with pneumonia, parapneumonic effusion and reactive lymphadenopathy. No underlying obstructive process is seen. Recommend continued imaging to clearance. SERVICE DATE: 01/28/17 EXAM TYPE: RAD - XRY-CHEST XRAY, ONE VIEW ONLY EXAMINATION:\H\ \N\XR CHEST CLINICAL INFORMATION: MSSA pneumonia. Follow-up. COMPARISON: 01/24/[address] dated 01/27/2017 TECHNIQUE: Frontal view of the chest was obtained. FINDINGS: Left lower lobe consolidation is unchanged from prior, silhouetting the left hemidiaphragm. Small effusion is also likely present as seen on the prior CT. No left upper lobe airspace disease. Right lung appears clear. Cardiac and mediastinal contours are unchanged. Pulmonary vasculature is normal. No acute osseous abnormalities. IMPRESSION: Unchanged left lower lobe pneumonia and small left effusion. Pertinent Lab Results: Laboratory Tests 01/20/17 2215: Lactic Acid 1.1 01/20/171934: pH 7.41, pCO2 34 L, pO2 255 H, HCO3 20 L, ABG O2 Sat (Measured) 98.0, P-50 ( Temp Corrected) Y, Carboxyhemoglobin 0.3 L, O2 Concentration % 100%, Temperature 102.2 H, O2 Delivery Method NRB, Phlebotomy Draw Site RIGHT RADIAL 01/20/17 1840: Anion Gap 17 H, Estimated GFR 45 L, BUN/Creatinine Ratio 25.0, Glucose 118 H, Lactic Acid 2.7 H, Calcium 8.3 L, Total Bilirubin 2.9 H, Direct Bilirubin 2.2 H, AST 89 H, ALT 83 H, Alkaline Phosphatase 202 H, Total Protein 5.7 L, Albumin 2.9 L, Globulin 2.8, Albumin/Globulin Ratio 1.0 L, CBC w Diff MAN DIFF ORDERED, RBC 4.36, MCV 84.8, MCH 28.2, RDW 13.2, MPV 8.3, Gran % 97.1 H, Lymphocytes % 2.0 L, Monocytes % 0.9 L, Eosinophils % 0, Basophils % 0 L, Absolute Granulocytes 31.1 H, Segmented Neutrophils 67, Band Neutrophils 25 H, Absolute Lymphocytes 0.6 L, Lymphocytes 2 L, Monocytes 1 L, Absolute Monocytes 0.3, Absolute Eosinophils 0, Absolute Basophils 0, Metamyelocytes 4 H , Myelocytes 1 H, Polychromasia 1+, Hypochromic-Microcytic 1+, Anisocytosis 1+, PUBS MCHC 33.3, Hepatitis A IgM Ab Pending, Hep Bs Antigen Pending, Hep B Core IgM Ab Conf Pending, Hepatitis C Antibody Pending Laboratory Tests 01/21 01/20 0420 2215 Chemistry Sodium (137 - 145 mmol/L) 130 L Potassium (3.5 - 5.1 mmol/L) 4.0 Chloride (98 - 107 mmol/L) 97 L Carbon Dioxide (22 - 30 mmol/L) 22 Anion Gap (5 - 16) 11 BUN (7 - 17 mg/dL) 29 H Creatinine (0.5 - 1.0 mg/dL) 1.0 Estimated GFR (>60 ml/min) 56 L BUN/Creatinine Ratio (7 - 25 %) 29.0 H Lactic Acid (0.7 - 2.1 mmol/L) 1.1 Phosphorus (2.5 - 4.5 mg/dL) 4.1 Magnesium (1.6 - 2.3 mg/dL) 2.3 Total Bilirubin (0.2 - 1.3 mg/dL) 2.0 H Direct Bilirubin (< 0.4 mg/dL) 1.7 H AST (14 - 36 U/L) 80 H ALT (9 - 52 U/L) 73 H Alkaline Phosphatase (<127 U/L) 149 H Total Protein (6.3 - 8.2 g/dL) 4.6 L Albumin (3.5 - 5.0 g/dL) 2.2 L Coagulation PT (9.4 - 12.5 SEC) 16.4 H INR (0.90 - 1.19) 1.57 H Hematology CBC w Diff MAN DIFF ORDERED WBC (4.8 - 10.8 /CUMM) 26.7 H RBC (4.20 - 5.40 /CUMM) 3.57 L Hgb (12.0 - 16.0 G/DL) 10.2 L Hct (37 - 47 %) 30.5 L MCV (81.0 - 99.0 FL) 85.6 MCH (27.0 - 31.0 PG) 28.5 RDW (11.5 - 14.5 %) 13.3 Plt Count (130 - 400 /CUMM) 304 MPV (7.4 - 10.4 FL) 7.6 Gran % (42.2 - 75.2 %) 98.3 H Lymphocytes % (20.5 - 51.1 %) 1.5 L Monocytes % (1.7 - 9.3 %) 0.2 L Eosinophils % (0 - 5 %) 0 Basophils % (0.0 - 2.0 %) 0 L Absolute Granulocytes (1.4 - 6.5 /CUMM) 26.2 H Segmented Neutrophils (42.2 - 75.2 %) 74 Band Neutrophils (0.0 - 5.0 %) 22 H Absolute Lymphocytes (1.2 - 3.4 /CUMM) 0.4 L Absolute Monocytes (0.10 - 0.60 /CUMM) 0.1 L Absolute Eosinophils (0.0 - 0.7 /CUMM) 0 Absolute Basophils (0.0 - 0.2 /CUMM) 0 Metamyelocytes (0.0 - 1.0 %) 4 H Platelet Estimate (ADEQUATE) ADEQUATE Polychromasia 1+ Microcytic Cells 1+ PUBS MCHC (33.0 - 37.0 G/DL) 33.3 01/22/17 0650: pH 7.38, pCO2 37, pO2 82, HCO3 22, ABG O2 Sat (Measured) 96.0, P-50 (Temp Corrected) Y, Carboxyhemoglobin 0.3 L, O2 Concentration % 5 LPM, Temperature 97.2, O2 Delivery Method N/C, Phlebotomy Draw Site RIGHT RADIAL 01/22/17 9565: Anion Gap 11, Estimated GFR > 60, BUN/Creatinine Ratio 30.0 H, CBC w Diff MAN DIFF ORDERED, RBC 3.47 L, MCV 85.7, MCH 28.6, RDW 14.0, MPV 7.4, Gran % 95.4 H , Lymphocytes % 3.3 L, Monocytes % 0.8 L, Eosinophils % 0.4, Basophils % 0.1, Absolute Granulocytes 22.4 H, Segmented Neutrophils 94 H, Band Neutrophils 2, Absolute Lymphocytes 0.8 L, Lymphocytes 2 L, Monocytes 2, Absolute Monocytes 0.2, Absolute Eosinophils 0.1, Absolute Basophils 0, Platelet Estimate ADEQUATE, Polychromasia 1+, Ovalocytes FEW, [place] Cells FEW, PUBS MCHC 33.4, Fld Total RBCs Counted 100 01/23/17 0622: Anion Gap 12, Estimated GFR > 60, Glucose 115 H, Calcium 8.0 L, Phosphorus 2.1 L, Magnesium 2.0, Total Bilirubin 0.8, AST 38 H, ALT 59 H, Albumin 2.4 L, CBC w Diff MAN DIFF ORDERED, RBC 3.47 L, MCV 84.9, MCH 28.3, RDW 13.7, MPV 7.1 L, Gran % 94.3 H, Lymphocytes % 4.8 L, Monocytes % 0.8 L, Eosinophils % 0.1, Basophils % 0 L, Absolute Granulocytes 15.0 H, Segmented Neutrophils 80 H, Band Neutrophils 2, Absolute Lymphocytes 0.8 L, Lymphocytes 13 L, Monocytes 5, Absolute Monocytes 0.1 L, Absolute Eosinophils 0, Absolute Basophils 0, Platelet Estimate INCREASED, Polychromasia 1+, Ovalocytes FEW, PUBS MCHC 33.3, Fld Total RBCs Counted 100 01/24/17 0400: Anion Gap 10, Estimated GFR > 60, Glucose 113 H, Calcium 7.9 L, Phosphorus 3.6 , Magnesium 1.9, Total Bilirubin 0.7, AST 59 H, ALT 66 H, Albumin 2.3 L, TSH 0.435, Free T4 0.93, CBC w Diff MAN DIFF ORDERED, RBC 3.36 L, MCV 84.9, MCH 28.5, RDW 14.1, MPV 7.6, Gran % 93.9 H, Lymphocytes % 5.6 L, Monocytes % 0.4 L, Eosinophils % 0.1, Basophils % 0 L, Absolute Granulocytes 13.5 H, Segmented Neutrophils 81 H, Band Neutrophils 3, Absolute Lymphocytes 0.8 L, Lymphocytes 12 L, Monocytes 4, Absolute Monocytes 0.1 L, Absolute Eosinophils 0, Absolute Basophils 0, Platelet Estimate INCREASED, Normocytic RBCs VERIFIED, Polychromasia 1+, Basophilic Stippling RARE, PUBS MCHC 33.6, Fld Total RBCs Counted 100 01/28/17 0730: CBC w Diff NO MAN DIFF REQ, RBC 3.57 L, MCV 84.8, MCH 28.8, RDW 13.8, MPV 7.9, Gran % 77.9 H, Lymphocytes % 17.4 L, Monocytes % 3.1, Eosinophils % 1.4, Basophils % 0.2, Absolute Granulocytes 8.6 H, Absolute Lymphocytes 1.9, Absolute Monocytes 0.3, Absolute Eosinophils 0.2, Absolute Basophils 0, PUBS MCHC 33.9 01/27/17 0805: Anion Gap 6, Estimated GFR > 60, BUN/Creatinine Ratio 22.9 01/26/17 0645: CBC w Diff MAN DIFF ORDERED, RBC 3.59 L, MCV 84.2, MCH 28.6, RDW 13.8, MPV 7.7, Gran % 82.3 H, Lymphocytes % 14.8 L, Monocytes % 2.0, Eosinophils % 0.6, Basophils % 0.3, Absolute Granulocytes 12.1 H, Segmented Neutrophils 71, Band Neutrophils 5, Absolute Lymphocytes 2.2, Lymphocytes 15 L, Monocytes 3, Absolute Monocytes 0.3, Absolute Eosinophils 0.1, Absolute Basophils 0, Metamyelocytes 4 H, Myelocytes 2 H, Platelet Estimate VERIFIED BY SMEAR, Normocytic RBCs VERIFIED, Normochromic RBCs VERIFIED, PUBS MCHC 34.0 Disposition Summary Disposition Principal Diagnosis: Left lung pneumonia with acute hypoxemic respiratory failure COPD Sepsis Q kidney insufficiency Additional Diagnosis: COPD History of SVT Discharge Disposition: home or self care Discharge Instructions General Discharge Information Code Status: Full Code Patient's Diet: As tolerated Patient's Activity: As tolerated Follow-Up Instructions/Appts: Chele with Dr. vOiedo and Dr. Gordon follow-up chest x-ray for clearing follow-up oxygen saturations. If necessary. CT scan of the chest and treat accordingly. Medications at Discharge Discharge Medications: Continue taking these medications: Nebivolol HCl (Bystolic) 20 MG TABLET 1 Tablet ORAL DAILY Qty = 30 Comments: Last Taken: 01/28/17 Time: 9:00 AM Ascorbate Calcium (Vitamin C) 500 MG TABLET 1 Tablet ORAL DAILY Comments: NOT GIVEN HOSPITAL Multivitamin (Multi-Day Vitamins) 1 EACH TABLET 1 Tablet ORAL DAILY Comments: NOT GIVEN IN HOSPITAL Albuterol Sulfate (Ventolin Hfa) 90 MCG HFA.AER.AD 2 Puff Inhale through mouth EVERY 4-6 HOURS NEEDED as needed for COPD Qty = 1 This prescription has been renewed Tiotropium Soldier (Spiriva) 18 MCG CAP.W.DEV 1 Capsule Inhale through mouth DAILY Qty = 1 This prescription has been renewed Start taking the following new medications: Amoxicillin/Clavulanate Potass (Amox-Clav 875-125 MG Tablet) 875 MG-125 MG TABLET 1 Tablet ORAL EVERY 12 HOURS Qty = 9 No Refills Instructions: PLEASE START TAKING TONIGHT Comments: NOT GIVEN IN HOSPITAL Guaifenesin (Guaifenesin ER) 600 MG TAB.ER.12H 1 Tablet ORAL EVERY 12 HOURS Qty = 6 No Refills Comments: Last Taken: 01/28/17 Time: 9:00 AM Prednisone (Prednisone) 10 MG TABLET 1 Tablet ORAL See Instructions Qty = 4 No Refills Instructions: START TOMORROW 2 TABS X 1 DAY 1 TAB X 2 DAYS THEN STOP Comments: Last Taken: 01/28/17 Time: 9:00 AM Copies To: Manfred GORDON MD; MINESH OVIEDO MD Attending MD Review Statement Documenting Attending: MINESH OVIEDO MD
== END 2017-01-28 15:30 | DRG 177 ==
LOC: ERH 18:06 → CRI 20:18 → ERHI 20:18 → 1NO 20:18 → ENRESERV 21:33 → CRI 22:47 → 1NO 01-24 20:44 → 2NB 01-26 14:25 → ENPENDDIS 01-28 14:39 → 2NB 01-28 15:30
PROVIDERS: Emergency Medicine; Internal Medicine; Internal Medicine Infectious Disease; Internal Medicine Interventional Cardiology; Student in an Organized Health Care Education/Training Program; ADMIT Internal Medicine
DX: J15.211 Pneumonia due to Methicillin susceptible Staphylococcus aureus (principal); J96.01 Acute respiratory failure with hypoxia; N17.9 Acute kidney failure, unspecified; J44.1 Chronic obstructive pulmonary disease with (acute) exacerbation; E87.1 Hypo-osmolality and hyponatremia
CPT/HCPCS: 1NSP; 2NBSP; 87184; CCU; 36415; 82436; 87040; 87070; 87071; 87147; 87449; 87450; 87804; 87804-59; 93005; 93010; 96374; 99291; J0456; J0690; J0696; J0713; J1644; J1815; J2405; J2920; J3370; J3490; J7040; J7512; J7608